=== PATIENT | female | born 1985 | race Caucasian/White ===

== ENCOUNTER 2021-04-12 17:34 | Observation (INO) | payer SELFPAY ==
--- NOTE | ~2021-04-12 | CT_ITS ---
EXAMINATION: CT abdomen pelvis wo con DATE: 04/12/2021 19:11 INDICATION: Epigastric and lower abdominal pain TECHNIQUE: Computed tomography (CT) of the abdomen and pelvis was performed without intravenous contr ast. The dose-length product was 344.97 mGy-cm. Automated exposure control and iterative reconstructi on technique were employed. COMPARISON: None. FINDINGS: Lung bases are unremarkable. No significant pleural or pericardial effusion. Heart size nor mal. No significant vascular abnormality. No significant lymphadenopathy. Status post cholecystectomy . The liver is hyperdense, suspicious for hemachromatosis. The pancreas, adrenal glands are unremarka ble. There is bilateral renal scarring. Nonobstructive bowel gas pattern. No abnormal pelvic masses o r fluid collections. Liver is enlarged. No lytic or blastic lesions. IMPRESSION: 1. Hepatomegaly with hyperdensity of the liver parenchyma, suspicious for hemachromatosis. Reviewed, dictated and finalized at location A. IMPRESSION: 1. Hepatomegaly with hyperdensity of the liver parenchyma, suspicious for hemac hromatosis.
[2021-04-12 17:39] VITALS: BP 158/115; PULSE 112; RESP 16; TEMP 37; O2SAT 99
--- NOTE | 2021-04-12 18:11 | ECG_ITS ---
Measurements Intervals [place] Rate: 96 P: 25 [place]: 143 QRS: 52 QRSD: 73 T: 48 QT: 356 QTc: 451 Interpretive Statements SINUS RHYTHM NORMAL ECG Electronically Signed On 04-13-2021 6:51:24 CDT by Josse Lind D.O.
[2021-04-12 18:28] LABS: Basophils Absolute Auto 0.04 K/mm3 (0.00-0.10); Basophils Percent Auto 0.5 % (0.0-1.0); Eosinophils Absolute Auto 0.15 K/mm3 (0.02-0.50); Eosinophils Percent Auto 1.9 % (1.0-6.0); Hematocrit 39.6 % (35.0-49.0); Immature Granulocyte Absolute 0.03 K/mm3 (0.00-0.00); Immature Granulocyte Percent A 0.4 % (0.0-0.0); Lymphocytes Absolute Auto 2.03 K/mm3 (1.10-4.50); Lymphocytes Percent Auto 25.7 % (18.0-42.0); Mean Corpuscular HGB Conc 32.8 g/dL (32.0-36.0); Mean Corpuscular Hemoglobin 28.1 pg (27.0-31.0); Mean Corpuscular Volume 85.7 fL (78.0-102.0); Mean Platelet Volume 9.6 fl (9.2-11.8); Monocytes Absolute Auto 0.44 K/mm3 (0.10-0.90); Monocytes Percent Auto 5.6 % (2.0-11.0); Neutrophils Absolute Auto 5.2 K/mm3 (1.7-7.2); Neutrophils Percent Auto 65.9 % (50.0-70.0); Platelet Count Result 396 K/mm3 (150-420); Red Blood Count 4.62 M/mm3 (4.20-5.40); Red Cell Distribution Width 15.2 % (11.6-14.4); White Blood Count 7.9 K/mm3 (4.8-10.8)
[2021-04-12 18:30] LABS: Appearance Urine Clear (Clear); Bilirubin Urine Negative (Negative); Color Urine Yellow (Yellow); Glucose Urine UA 3+ (Negative); Ketones Urine Negative (Negative); Leukocyte Esterase Ur Negative LEU/UL (Negative); Nitrate Urine Negative (Negative); Protein Urine 2+ (Negative); Specific Grav Ur >= 1.030 (1.010-1.020); Urobilinogen Urine 0.2 mg/dL (0.2-1.0); pH Urine 5.5 (5.0-8.0)
[2021-04-12 18:37] LABS: Add Urine Microscopic? YES; Amorphous Sediment Urine Few; Bacteria Urine 1+ /hpf; Blood Urine Trace (Negative); RBC Urine 0-2 /hpf (0-2); Squamous Epithelial Cell Urine Few /hpf (Few); WBC Urine 0-3 /hpf (0-3)
[2021-04-12 18:39] LABS: Pregnancy On Board Control Positive; Urine Pregnancy Test Negative
[2021-04-12] MEDS: SODIUM CHLORIDE 0.9% IV 1,000 ML 999 ML IV CONT (18:45)
[2021-04-12] MEDS: ONDANSETRON INJ 4 MG/2 ML VIAL IV PUSH (18:45)
[2021-04-12] MEDS: KETOROLAC 30 MG/ML VIAL (*BKC) IV PUSH (18:45)
[2021-04-12] MEDS: PANTOPRAZOLE SODIUM IV 40 MG VIAL IV PUSH (18:45)
[2021-04-12 18:46] LABS: Alanine Aminotransferase 32 U/L (14-59); Albumin Level 2.9 g/dL (3.4-5.0); Alkaline Phosphatase 163 U/L (46-116); Anion Gap 15 mmol/L (8-16); Aspartate Amino Transferase 23 U/L (15-37); Bilirubin,Total 0.2 mg/dL (0.00-1.00); Blood Urea Nitrogen 20 mg/dL (7-18); Calcium 8.9 mg/dL (8.5-10.1); Carbon Dioxide 25 mmol/L (21-32); Chloride 100 mmol/L (98-108); Estimated Glomerular Filt Rate 35; Glucose 166 mg/dL (70-99); Lactic Acid Reflex 6.3 mmol/L (0.4-2.0); Lipase 1145 U/L (73-393); Osmolality Calculated 296 mOsm/kg (285-295); Potassium 4.1 mmol/L (3.5-5.1); Sodium 140 mmol/L (136-145); Total Protein 6.9 g/dL (6.4-8.2)
--- NOTE | 2021-04-12 19:33 | ED.ABDPAIN ---
HPI - Abdominal Pain General Chief Complaint: Abdominal Pain Stated Complaint: abd pain Time Seen by Provider: 04/12/21 17:37 Source: patient Mode of arrival: ambulatory Limitations: no limitations History of Present Illness HPI narrative: this is a 36-year-old female with a history of type 1 diabetes currently on insulin presents with some abdominal pain periumbilical radiating to her right lower quadrant and having some epigastric diff some discomfort started 5 days ago and has persisted and today it had slightly worsened she has some nausea with few episodes of vomiting she denies any alcohol use, she has a history of cholecystectomy. Otherwise there is no fever or chills no flank pain no diarrhea or constipation no alcohol or drug abuse. MD elicited complaint: abdominal pain Pertinent past history: none Onset (ago): day(s) Pain Consistency: intermittent Location: diffuse and RLQ Severity: moderate Pain scale (0-10): 8 Quality: aching Radiation: RLQ Migration to: no migration Exacerbating factors: vomiting Relieving factors: nothing Associated symptoms: nausea and vomiting Related Data Home Medications Medication Instructions Recorded Confirmed insulin glargine [Lantus Solostar 28 unit SUBCUT HS 04/12/21 04/12/21 U-100 Insulin] insulin regular human 1 - 20 unit SUBCUT TID 04/12/21 04/12/21 Allergies Allergy/AdvReac Type Severity Reaction Status Date / Time iodine Allergy Unknown Verified 04/12/21 18:22 latex Allergy Unknown Verified 04/12/21 18:22 Penicillins Allergy Unknown Verified 04/12/21 18:22 Review of Systems Review of Systems: All systems reviewed & are unremarkable except as noted in HPI and below PMFSH Past Medical History Medical History Type 1 diabetes Exam Const: General: no acute distress Orientation/consciousness: patient oriented x3 HENMT: Head: normal to inspection Eyes: Conjunctivae: conjunctivae normal Pupils: Equal, round and reactive pupils present Neck: Neck: normal visual inspection, no lymphadenopathy and no meningeal signs Chest: Chest palpation & inspection: normal inspection of the chest Resp: Effort & Inspection: normal respiratory effort Auscultation: clear to auscultation bilaterally Cardio: Rate: regular rate Rhythm: regular rhythm GI: GI Palp: Yes Soft to palpation and Yes Tenderness to palpation present (GI) ( epigastric and right lower quadrant) : General: Yes no CVA tenderness Skin: General skin exam: normal color Rashes: no rashes Neuro: General: patient oriented x3 and moves all extremities Extrem: General: normal to inspection and no pedal edema Psych: Appearance: grossly normal Mental Status: mental status grossly normal Affect: normal affect Attitude: cooperative Course Course Emergency Course: reassessment of patient's abdominal pain has improved with some IV Toradol and IV fluids labs were reviewed with patient and CT scan, does some show that her labs have are increased lipase greater than a 1000 and will admit the patient for observation. Vital Signs Vital signs: Vital Signs Temperature 37.0 C 04/12/21 17:39 Pulse Rate 112 H 04/12/21 17:39 Respiratory Rate 16 04/12/21 17:39 Blood Pressure 158/115 H 04/12/21 17:39 Pulse Oximetry 99 04/12/21 17:39 Temperature 37.0 C 04/12/21 17:39 Pulse Rate 112 H 04/12/21 17:39 Respiratory Rate 16 04/12/21 17:39 Blood Pressure 158/115 H 04/12/21 17:39 Pulse Oximetry 99 04/12/21 17:39 MDM - Abdominal Pain Lab Data Result diagrams: 04/12/21 18:23 04/12/21 18:23 Labs: Lab Results 04/12/21 04/12/21 04/12/21 Range/Units 18:23 18:23 18:23 WBC 7.9 (4.8-10.8) K/mm3 RBC 4.62 (4.20-5.40) M/mm3 Hgb 13.0 (12.0-15.0) g/dL Hct 39.6 (35.0-49.0) % MCV 85.7 (78.0-102.0) fL MCH 28.1 (27.0-31.0) pg MCHC 32.8 (32.0-36.0) g/dL RDW 15.2 H (
[2021-04-12 19:39] VITALS: PULSE 111; RESP 20; O2SAT 97
--- NOTE | 2021-04-12 19:44 | PC.NURSE ---
1924 obs room requested. room 202 provided. registration notified. 1942 attempted to call report. accepting nurse unavailable. awaiting call back
[2021-04-12 20:00] VITALS: BP 143/94; BP 145/106; PULSE 111; PULSE 112; RESP 20; TEMP 36.2; O2SAT 95; O2SAT 97
--- NOTE | 2021-04-12 20:00 | ADMGEN ---
This patient, Khloe Crump, was admitted to 2nd Floor Room 202-1 via wheelchair. Patient oriented to hospital policies and general routines including ID bracelet, bed and alarms, visiting hours, pain management, procedures, bathroom and other care routines, personal items, smoking policy, room service/diet, and visiting hours. Information on how to activate the Rapid Response Team has been discussed. Patient is encouraged to report perceived risks to care and to ask questions if they do not understand what they are told or what they should do.
[2021-04-12 20:03] VITALS: BMI 24.5
[2021-04-12 21:26] LABS: Reflex Lactic Acid Yes or No Add Lactic
[2021-04-12] MEDS: INSULIN GLARGINE (*BKC) 100 UNITS/ML 28 UNITS SUB-Q (22:19)
[2021-04-12] MEDS: SODIUM CHLORIDE 0.9% IV 1,000 ML 100 ML IV CONT (22:20)
[2021-04-12] MEDS: MORPHINE SULFATE (*CRX) 2 MG/ML INJ IV PUSH (22:20)
--- NOTE | 2021-04-12 22:20 | PC.NURSE ---
YAZMIN Mendez at bedside to administer IV push Morphine.
[2021-04-12 22:59] LABS: Glucose Point of Care 148 mg/dl (65-105)
[2021-04-13] VITALS: BP 143/94; PULSE 111; RESP 20; TEMP 36.2; O2SAT 97
[2021-04-13 04:00] VITALS: BP 132/98; PULSE 76; RESP 18; TEMP 36.3; O2SAT 98
[2021-04-13 06:49] LABS: Basophils Absolute Auto 0.03 K/mm3 (0.00-0.10); Basophils Percent Auto 0.6 % (0.0-1.0); Eosinophils Absolute Auto 0.16 K/mm3 (0.02-0.50); Eosinophils Percent Auto 3.1 % (1.0-6.0); Hematocrit 33.5 % (35.0-49.0); Hemoglobin 10.9 g/dL (12.0-15.0); Immature Granulocyte Absolute 0.02 K/mm3 (0.00-0.00); Immature Granulocyte Percent A 0.4 % (0.0-0.0); Lymphocytes Absolute Auto 2.04 K/mm3 (1.10-4.50); Lymphocytes Percent Auto 39.4 % (18.0-42.0); Mean Corpuscular HGB Conc 32.5 g/dL (32.0-36.0); Mean Corpuscular Hemoglobin 28.6 pg (27.0-31.0); Mean Corpuscular Volume 87.9 fL (78.0-102.0); Monocytes Percent Auto 5.8 % (2.0-11.0); Neutrophils Absolute Auto 2.6 K/mm3 (1.7-7.2); Neutrophils Percent Auto 50.7 % (50.0-70.0); Platelet Count Result 269 K/mm3 (150-420); Red Blood Count 3.81 M/mm3 (4.20-5.40); Red Cell Distribution Width 15.8 % (11.6-14.4); White Blood Count 5.2 K/mm3 (4.8-10.8)
[2021-04-13 07:01] LABS: Alanine Aminotransferase 33 U/L (14-59); Albumin Level 2.1 g/dL (3.4-5.0); Alkaline Phosphatase 113 U/L (46-116); Anion Gap 10 mmol/L (8-16); Aspartate Amino Transferase 56 U/L (15-37); Bilirubin,Total 0.2 mg/dL (0.00-1.00); Blood Urea Nitrogen 19 mg/dL (7-18); Calcium 7.3 mg/dL (8.5-10.1); Carbon Dioxide 23 mmol/L (21-32); Chloride 107 mmol/L (98-108); Estimated CRCL calculation 54 ml/min; Estimated Glomerular Filt Rate 56; Glucose 232 mg/dL (70-99); Osmolality Calculated 299 mOsm/kg (285-295); Potassium 4.6 mmol/L (3.5-5.1); Sodium 140 mmol/L (136-145); Total Protein 5.2 g/dL (6.4-8.2)
[2021-04-13 07:04] LABS: Lipase 170 U/L (73-393)
[2021-04-13 07:57] LABS: Glucose Point of Care 237 mg/dl (65-105)
[2021-04-13 08:00] VITALS: BP 136/103; PULSE 82; RESP 18; TEMP 36.4; O2SAT 100
[2021-04-13 08:57] LABS: Reflex Lactic Acid Yes or No No Lactic Reflex
[2021-04-13] MEDS: PANTOPRAZOLE SODIUM IV 40 MG VIAL IV PUSH (09:01)
[2021-04-13] MEDS: SODIUM CHLORIDE 0.9% IV 1,000 ML 100 ML IV CONT (09:01)
[2021-04-13] MEDS: ONDANSETRON INJ 4 MG/2 ML VIAL IV PUSH (09:50)
[2021-04-13] MEDS: MORPHINE SULFATE (*CRX) 2 MG/ML INJ IV PUSH (09:50)
[2021-04-13 11:43] LABS: Glucose Point of Care 86 mg/dl (65-105)
[2021-04-13 12:14] LABS: Lactic Acid Reflex 2.6 mmol/L (0.4-2.0)
--- NOTE | 2021-04-13 13:12 | PM.SD2 ---
Same Day Admit/Disch: HPI History of Present Illness Chief complaint: abd pain <DOLORES Henriquez - Last Filed: 04/13/21 13:27> Narrative: Khloe Crump is a 36 year old female that presented to ED with abdominal pain. Patient has a past medical history of type 1 diabetes mellitus. According to patient at approximately 04/07/2021 she started experiencing abdominal pain to her right lower quadrant that was not relieved with the use of Tylenol but worsened when she ate. According to patient she has had these same abdominal pains in the past that did not last for long. What prompted her to proceed to our ED is that the pain would not resolve. Patient notes that she did have some nausea with a few episodes of vomiting. Imaging indicated a hepatomegaly patient lipase was 1145 lactic acid 6.3, WBCs 5.2, hemoglobin 10.9, hematocrit 33.5, platelets 269, sodium 140, potassium 4.6, chloride 107, BUN 19, creatinine 1.11, glucose 232, AST 56, ALT 33 EKG sinus rhythm. Patient was admitted for pancreatitis. This day of discharge patient abdominal pain has subsided and she was able to tolerate all her meals. Patient agrees she is ready for discharge. The patient denies SOB, CP, palpitation, extremity numbness, lightheadedness, dizziness, constipation, diarrhea, chills, or fever. Observation 60 minutes time spent With discharge home with self-care <DOLORES Henriquez - Last Filed: 04/13/21 13:27> [facility] Past Medical History Medical History: Medical History Type 1 diabetes <DOLORES Henriquez - Last Filed: 04/13/21 13:27> Social History Social History: Social History Smoking status: Former smoker Tobacco type: cigarettes Second hand tobacco smoke exposure: Yes Smoking end date: 03/22/20 Alcohol intake: former Drinks per week: 0 Substance use: never Substance use type: does not use Gender identity (if verbalized by the patient): Female Sexual Orientation (if Verbalized by the Patient): Straight or Heterosexual Spiritual care concerns: No <DOLORES Henriquez - Last Filed: 04/13/21 13:27> Same Day Admit/Disch: Med Pre-admit Medications Home Medications: Home Medications Medication Instructions Recorded Confirmed Type Lantus Solostar U-100 Insulin 28 unit SUBCUT HS 04/12/21 04/12/21 History insulin regular human 1 - 20 unit SUBCUT TID 04/12/21 04/12/21 History ondansetron HCl [Zofran] 4 mg PO Q8H PRN #30 tablet 04/13/21 Rx tramadol 100 mg PO Q4H PRN #20 tablet 04/13/21 Rx <Staci [id number]-C - Last Filed: 04/13/21 13:27> Exam Narrative: Exam Narrative: GENERAL: This is a well-nourished, well-developed patient, in no apparent distress. HEAD: normocephalic, atraumatic. EYES: PERRL. Sclera clear/white. Vision is grossly intact. EARS: External ears normal, auditory canals clear and without drainage, TMs normal without perforation. Hearing grossly intact. NOSE: External nose normal with no obvious nasal discharge, nares without redness, no rhinorrhea. THROAT: Mucous membranes moist, posterior pharynx clear. NECK: Neck supple, non-tender without lymphadenopathy, masses or thyromegaly. CARDIOVASCULAR: Regular rate and rhythm without murmurs, gallops, or rubs. RESPIRATORY: Clear to auscultation. Breath sounds equal bilaterally. No wheezes, rales, or rhonchi. GASTROINTESTINAL: Abdomen soft, right lower quadrant tenderness with palpation, nondistended. Bowel sounds are active. No hepato-splenomegaly, or palpable masses. No guarding. SKIN: warm, intact with no suspicious lesions or rash, good texture and turgor. NEURO: awake, alert, and oriented to person, place and time. There were no obvious focal neurologic abnormalities. Steady gait EXTREMITIES: Normal range of motion. No edema. No calf tenderness. Negative Homans sign bilaterally. BACK: Nontender without def
--- NOTE | 2021-04-13 14:00 | PC.NURSE ---
Patient discharged to home. Ambulated off of floor, gait steady. Patient verbalized understanding of discharge orders
--- NOTE | 2021-04-14 12:58 | PC.NURSE ---
Follow up call attempted, no answer.
--- NOTE | 2021-04-15 12:34 | PC.NURSE ---
Discharge call back attempted, no answer.
== END 2021-04-13 14:00 | disposition home or self-care (01) ==
LOC: CHSED 19:38 → CHS2ND 19:46
PROVIDERS: Nurse Practitioner; Admitting Provider Emergency Medicine; Emergency Provider Emergency Medicine; Visit Provider Emergency Medicine
DX: K85.90 Acute pancreatitis without necrosis or infection, unspecified (principal); E10.9 Type 1 diabetes mellitus without complications; R16.0 Hepatomegaly, not elsewhere classified; Z90.49 Acquired absence of other specified parts of digestive tract; Z87.891 Personal history of nicotine dependence; Z79.4 Long term (current) use of insulin
CPT/HCPCS: 36415; 74176; 80053; 81001; 81025; 82948; 83605; 83690; 84484; 85025; 93005; 96361; 96374; 96375; 96376; 99285; C9113; G0378; G0379; J1815; J1885; J2270; J2405; J7030

== ENCOUNTER 2021-05-25 20:19 | Inpatient (IN) | payer MEDICARE, SELFPAY ==
--- NOTE | ~2021-05-25 | CT_ITS ---
EXAMINATION: CT abdomen pelvis wo con EXAM DATE: 05/25/2021 21:39 INDICATION: RUQ Pian, Hx/o pancreatitis allergy to Iodine RUQ pain x2 days w/nausea/diarrhea. hx panc reatitis . TECHNIQUE: Spiral CT of the abdomen and pelvis was performed following intravenous injection of 100 m L Omnipaque 350. Axial, coronal and sagittal images of the abdomen and pelvis were reviewed. The do se-length product (DLP) for this examination was 308.25 mGy-cm. The exposure was tailored according to patient size (auto mA exposure control), and iterative reconstruction (ASIR) was used as additiona l dose reduction technique. Comparison is made to prior examination from 04/12/2021. FINDINGS: Again there is hepatomegaly and diffusely hyperdense liver parenchyma, could be hemosideros is or hemachromatosis. Adrenal glands, pancreas, spleen are unremarkable. There are cholecystectomy clips. Lobular mild to moderately atrophic right kidney with small nephrolithiasis. No hydronephrosi s. The uterus is unremarkable. The bladder is unremarkable. There is no retroperitoneal or pelvic lymphadenopathy. The appendix is normal. The stomach and small bowel are unremarkable. There is expected amount of c olonic stool. No free intraperitoneal gas. The heart is normal in size. There are no pericardial or pleural effusions. The lung bases are unremarkable. There are no osteoblastic or osteolytic les ions identified. IMPRESSION: 1. No acute intra-abdominal findings. 2. Hepatomegaly, hyperdense liver could be hemosiderosis or hemachromatosis, unchanged. 3. Mild to moderate right renal atrophy. Small right nephrolithiasis. Reviewed, dictated and finalized at location A. IMPRESSION: 1. No acute intra-abdominal findings. 2. Hepatomegaly, hyperdense liver could be hemosiderosis or hemachromatosis, u nchanged. 3. Mild to moderate right renal atrophy. Small right nephrolithiasis.
[2021-05-25 20:25] VITALS: BP 196/111; PULSE 114; RESP 18; TEMP 36.4; O2SAT 99
--- NOTE | 2021-05-25 20:36 | ED.ABDPAIN ---
HPI - Abdominal Pain General Chief Complaint: Abdominal Pain Stated Complaint: upper stomach pain History of Present Illness HPI narrative: patient has a history of previous pancreatitis idiopathic. Began having abdominal pain right upper quadrant similar to previous symptoms 2 days ago. She said the last time she waited 5 days and it was unbearable. She did not want to wait that long this time. She denies any alcohol use. MD elicited complaint: abdominal pain Onset (ago): day(s) (2) Pain Consistency: intermittent Location: RUQ Severity: mild Pain scale (0-10): 3 Quality: aching, fullness and dull Radiation: none Migration to: no migration Exacerbating factors: eating Relieving factors: nothing Context: confirms history of similar episodes Associated symptoms: nausea and diarrhea Related Data Patient : No Home Medications Medication Instructions Recorded Confirmed Lantus Solostar U-100 Insulin 28 unit SUBCUT HS 04/12/21 05/25/21 insulin regular human 1 - 20 unit SUBCUT TID 04/12/21 05/25/21 Allergies Allergy/AdvReac Type Severity Reaction Status Date / Time iodine Allergy Unknown Verified 04/12/21 18:22 latex Allergy Unknown Verified 04/12/21 18:22 Penicillins Allergy Unknown Verified 04/12/21 18:22 Review of Systems Review of Systems: All systems reviewed & are unremarkable except as noted in HPI and below Constitutional: Constitutional: Denies chills and Denies fever(s) Cardiovascular: Cardiovascular: Denies chest pain Respiratory: Respiratory: Denies dyspnea Gastrointestinal: Gastrointestinal: Reports diarrhea, Reports nausea and Denies vomiting Genitourinary: Genitourinary: Denies nocturia and Denies dysuria [facility] Past Medical History Medical History (Updated 05/25/21 @ 22:04 by Jonathan Connors MD) Pancreatitis Type 1 diabetes Surgical History Surgical History (Updated 05/25/21 @ 20:38 by Jonathan Connors MD) Hx of cholecystectomy Social History Social History Smoking status: Former smoker Tobacco type: cigarettes Second hand tobacco smoke exposure: Yes Smoking end date: 03/22/20 Alcohol intake: former Drinks per week: 0 Substance use: never Substance use type: does not use Gender identity (if verbalized by the patient): Female Spiritual care concerns: No Exam Const: General: healthy appearing and no acute distress Nutritional Appearance: well nourished Orientation/consciousness: patient oriented x3 Other: female nurse in room during examination. HENMT: Head: normal to inspection Ears: external ears normal Eyes: Conjunctivae: conjunctivae normal Pupils: Equal, round and reactive pupils present EOM: EOMs intact bilaterally Neck: Neck: normal visual inspection Resp: Effort & Inspection: normal respiratory effort Auscultation: clear to auscultation bilaterally Cardio: Rate: tachycardic Rhythm: regular rhythm GI: Inspection: distended GI Palp: Yes Soft to palpation, Yes Tenderness to palpation present (GI) (Mild RUQ), Yes Guarding due to palpation present (GI) (Mild), No Rigid due to palpation and No Rebound tenderness present Percussion: Yes normal to percussion and No Fluid wave present Back/Spine/Pelvis: Cervical Spine: cervical ROM normal Thoracic/Lumbar Spine: thoraco-lumbar ROM normal Skin: General skin exam: normal color Rashes: no rashes Neuro: General: patient oriented x3, moves all extremities, no meningeal signs and no focal motor deficits Speech: normal speech Gait exam (Neuro): Normal gait present Extrem: General: normal to inspection and no clubbing, cyanosis or edema Psych: Appearance: grossly normal and well kempt Mental Status: mental status grossly normal Affect: normal affect Attitude: cooperative Thought content: Yes Normal thought content present Discharge Plan Discharge Clinical Impression: Pancreatitis Qualifiers: Chronicity: acute Pancreatitis typ
[2021-05-25 21:00] LABS: Basophils Absolute Auto 0.04 K/mm3 (0.00-0.10); Basophils Percent Auto 0.6 % (0.0-1.0); Eosinophils Percent Auto 3.1 % (1.0-6.0); Hematocrit 39.4 % (35.0-49.0); Hemoglobin 13.1 g/dL (12.0-15.0); Immature Granulocyte Absolute 0.02 K/mm3 (0.00-0.00); Immature Granulocyte Percent A 0.3 % (0.0-0.0); Lymphocytes Absolute Auto 1.67 K/mm3 (1.10-4.50); Lymphocytes Percent Auto 25.9 % (18.0-42.0); Mean Corpuscular HGB Conc 33.2 g/dL (32.0-36.0); Mean Corpuscular Hemoglobin 29.3 pg (27.0-31.0); Mean Corpuscular Volume 88.1 fL (78.0-102.0); Mean Platelet Volume 9.2 fl (9.2-11.8); Monocytes Percent Auto 6.2 % (2.0-11.0); Neutrophils Absolute Auto 4.1 K/mm3 (1.7-7.2); Neutrophils Percent Auto 63.9 % (50.0-70.0); Platelet Count Result 400 K/mm3 (150-420); Red Blood Count 4.47 M/mm3 (4.20-5.40); Red Cell Distribution Width 13.9 % (11.6-14.4); White Blood Count 6.5 K/mm3 (4.8-10.8)
[2021-05-25 21:05] LABS: Add Urine Microscopic? YES; Appearance Urine Clear (Clear); Bilirubin Urine Negative (Negative); Blood Urine 1+ (Negative); Color Urine Light Yellow (Yellow); Glucose Urine UA 3+ (Negative); Ketones Urine Trace (Negative); Leukocyte Esterase Ur Negative LEU/UL (Negative); Nitrate Urine Negative (Negative); Protein Urine 2+ (Negative); Urobilinogen Urine 0.2 mg/dL (0.2-1.0); pH Urine 5.5 (5.0-8.0)
[2021-05-25 21:10] LABS: Squamous Epithelial Cell Urine Rare /hpf (Few)
[2021-05-25 21:11] LABS: Alanine Aminotransferase 56 U/L (14-59); Albumin Level 2.9 g/dL (3.4-5.0); Alkaline Phosphatase 182 U/L (46-116); Amylase 85 U/L (25-115); Anion Gap 18 mmol/L (8-16); Aspartate Amino Transferase 44 U/L (15-37); Bacteria Urine Trace /hpf; Bilirubin,Total 0.2 mg/dL (0.00-1.00); Blood Urea Nitrogen 17 mg/dL (7-18); Calcium 8.9 mg/dL (8.5-10.1); Carbon Dioxide 23 mmol/L (21-32); Chloride 96 mmol/L (98-108); Estimated CRCL calculation 54 ml/min; Estimated Glomerular Filt Rate 53; Glucose 321 mg/dL (70-99); Lipase 774 U/L (73-393); Osmolality Calculated 297 mOsm/kg (285-295); Potassium 4.3 mmol/L (3.5-5.1); Sodium 137 mmol/L (136-145); Total Protein 6.7 g/dL (6.4-8.2)
[2021-05-25 21:16] LABS: SPREG INTERNAL CONTROL Positive; Serum Qual hCG NEG
[2021-05-25 21:21] LABS: Amphetamine Screen Urine Negative (Negative); Barbiturate Screen Urine Negative (Negative); Benzodiazepines Screen Urine Negative (Negative); Cannabinoid Screen Urine Negative (Negative); Cocaine Screen Urine Negative (Negative); Methadone Screen Urine Negative (Negative); Opiate Screen Urine Negative (Negative); Phencyclidine Screen Urine Negative (Negative)
[2021-05-25 21:24] LABS: CRP < 0.2 mg/dL (0.0-0.9)
[2021-05-25 21:27] LABS: Lactic Acid Reflex 8.5 mmol/L (0.4-2.0)
[2021-05-25 21:58] VITALS: BP 167/111; PULSE 104; RESP 18; O2SAT 99
[2021-05-25] MEDS: LACTATED RINGERS 1,000 ML 999 ML IV CONT (22:06)
[2021-05-25] MEDS: hydrALAZINE HCL 20 MG/ML VIAL IV PUSH (22:07)
[2021-05-25 22:09] VITALS: BP 150/100; PULSE 102; RESP 18; TEMP 36.2; O2SAT 99
[2021-05-25] MEDS: MORPHINE SULFATE (*CRX) 2 MG/ML INJ (22:10)
[2021-05-25 22:37] VITALS: PULSE 125; RESP 20; TEMP 36.4; O2SAT 98; BMI 22.5
--- NOTE | 2021-05-25 23:01 | ADMGEN ---
This patient, Khloe Crump, was admitted to 2nd Floor Room 208-2. Patient oriented to hospital policies and general routines including ID bracelet, bed and alarms, visiting hours, pain management, procedures, bathroom and other care routines, personal items, smoking policy, room service/diet, and visiting hours. Information on how to activate the Rapid Response Team has been discussed. Patient are encouraged to report perceived risks to care and to ask questions if they do not understand what they are told or what they should do.
[2021-05-25 23:52] LABS: Reflex Lactic Acid Yes or No Add Lactic
[2021-05-26] MEDS: LACTATED RINGERS 1,000 ML 200 ML IV CONT ×2 (00:45→06:36)
[2021-05-26] MEDS: INSULIN GLARGINE (*BKC) 100 UNITS/ML 28 UNITS SUB-Q ×2 (00:46→21:04)
--- NOTE | 2021-05-26 00:52 | PC.NURSE ---
Patient blood glucose 420 Doctor notified and order received for 1 time dose of 10 units of Humalog
[2021-05-26 00:56] VITALS: BP 118/72; PULSE 112; RESP 18; TEMP 36.3; O2SAT 98
[2021-05-26 01:01] LABS: Glucose Point of Care 420 mg/dl (65-105)
[2021-05-26 01:35] LABS: Lactic Acid Reflex 1.8 mmol/L (0.4-2.0)
[2021-05-26 05:18] LABS: Basophils Absolute Auto 0.04 K/mm3 (0.00-0.10); Basophils Percent Auto 0.6 % (0.0-1.0); Eosinophils Absolute Auto 0.21 K/mm3 (0.02-0.50); Eosinophils Percent Auto 3.2 % (1.0-6.0); Hematocrit 33.2 % (35.0-49.0); Hemoglobin 11.2 g/dL (12.0-15.0); Immature Granulocyte Absolute 0.02 K/mm3 (0.00-0.00); Immature Granulocyte Percent A 0.3 % (0.0-0.0); Lymphocytes Absolute Auto 2.28 K/mm3 (1.10-4.50); Lymphocytes Percent Auto 34.9 % (18.0-42.0); Mean Corpuscular HGB Conc 33.7 g/dL (32.0-36.0); Mean Corpuscular Hemoglobin 29.9 pg (27.0-31.0); Mean Corpuscular Volume 88.5 fL (78.0-102.0); Mean Platelet Volume 9.3 fl (9.2-11.8); Monocytes Percent Auto 7.6 % (2.0-11.0); Neutrophils Absolute Auto 3.5 K/mm3 (1.7-7.2); Neutrophils Percent Auto 53.4 % (50.0-70.0); Platelet Count Result 288 K/mm3 (150-420); Red Blood Count 3.75 M/mm3 (4.20-5.40); White Blood Count 6.5 K/mm3 (4.8-10.8)
[2021-05-26 05:34] LABS: Alanine Aminotransferase 39 U/L (14-59); Albumin Level 2.1 g/dL (3.4-5.0); Alkaline Phosphatase 126 U/L (46-116); Anion Gap 12 mmol/L (8-16); Aspartate Amino Transferase 38 U/L (15-37); Bilirubin,Total 0.3 mg/dL (0.00-1.00); Blood Urea Nitrogen 16 mg/dL (7-18); Carbon Dioxide 23 mmol/L (21-32); Chloride 103 mmol/L (98-108); Estimated CRCL calculation 72 ml/min; Estimated Glomerular Filt Rate > 60; Glucose 72 mg/dL (70-99); Lipase 212 U/L (73-393); Osmolality Calculated 286 mOsm/kg (285-295); Potassium 3.8 mmol/L (3.5-5.1); Sodium 138 mmol/L (136-145); Total Protein 5.1 g/dL (6.4-8.2)
[2021-05-26 05:39] LABS: Lactic Acid Reflex 3.7 mmol/L (0.4-2.0)
--- NOTE | 2021-05-26 05:42 | PC.NURSE ---
Patient glucose 72. Doctor aware of change. will recheck on 1 hour
[2021-05-26 06:40] LABS: Glucose Point of Care 83 mg/dl (65-105)
--- NOTE | 2021-05-26 07:48 | PC.NURSE ---
pt resting in bed, vital signs obtained, no complaints of pain N/V at this time, iv fluids running per order
[2021-05-26 08:00] VITALS: BP 133/96; PULSE 89; RESP 16; TEMP 36.7; O2SAT 98
--- NOTE | 2021-05-26 09:10 | PC.NURSE ---
pt resting in bed, denies any pain or needs at this time.
--- NOTE | 2021-05-26 09:12 | PM.IMHP ---
H&P: HPI History of Present Illness Date/Time: 05/26/21 09:12 this is a 36-year-old female who presented to our emergency department with abdominal pain nausea vomiting and diarrhea. Patient has a past medical history of pancreatitis and type 1 diabetes. Patient notes that within the last 6 months she has been admitted here for pancreatitis she does not have a history of alcohol abuse. She noted that for the last 2 days she has been having right upper quadrant pain with nausea vomiting and diarrhea. Currently she is not experiencing that she still continues to have right upper quadrant tenderness. WBC 6.5 hemoglobin 13.1 hematocrit 39.4, platelets 400, sodium 137, potassium 4.3, BUN 17, creatinine 1.17 lactic acid 8.5 AST 44, ALT 56, alkaline phosphatase 182, lipase 774, amylase 85 UA positive for protein glucose ketones blood trace of bacteria toxicology negative CT of the abdomen unchanged. Patient is being admitted for pancreatitis. The patient denies SOB, CP, palpitation, extremity numbness, lightheadedness, dizziness, constipation, diarrhea, chills, or fever. Patient notes that her situation has improved she does continue to have tenderness to her right upper quadrant but her pain is controlled. Chief Complaint: Abdominal pain nausea vomiting diarrhea Review of Systems Review of Systems: Narrative: A 14 organ system Review of Systems was performed and pertinent positives included in the HPI, otherwise remaining ROS is negative. All systems reviewed & are unremarkable except as noted in HPI and below PMFSH Past Medical History Medical History (Updated 05/26/21 @ 09:23 by DOLORES Henriquez) Pancreatitis Type 1 diabetes Surgical History Surgical History Hx of cholecystectomy Family History Family History (Updated 05/26/21 @ 09:20 by DOLORES Henriquez) Other Family history non-contributory Social History Social History Smoking packs per day: 0 Smoking cigarettes per day: 0.0 Smoking status: Light tobacco smoker Tobacco type: cigarettes Second hand tobacco smoke exposure: Yes Smoking end date: 03/22/20 Additional smoking assessment comments: pt stated smoked maybe 1 ciggeratte this past month Alcohol intake: former Drinks per week: 0 Substance use: never Substance use type: does not use Gender identity (if verbalized by the patient): Female Sexual Orientation (if Verbalized by the Patient): Straight or Heterosexual Spiritual care concerns: No Meds Home Medications and Allergies Home Medications Medication Instructions Recorded Confirmed Type Lantus Solostar U-100 Insulin 28 unit SUBCUT HS 04/12/21 05/25/21 History insulin regular human 1 - 20 unit SUBCUT TID 04/12/21 05/25/21 History Allergies Allergy/AdvReac Type Severity Reaction Status Date / Time iodine Allergy Unknown Verified 04/12/21 18:22 latex Allergy Unknown Verified 04/12/21 18:22 Penicillins Allergy Unknown Verified 04/12/21 18:22 Vital Signs Vital Signs - 24 hr 05/25/21 20:25 05/25/21 21:58 05/25/21 22:09 Temperature 97.6 F 97.2 F L Pulse Rate 114 H 104 H 102 H Respiratory Rate 18 18 18 Blood Pressure 196/111 H 167/111 H 150/100 H Pulse Oximetry 99 99 99 05/25/21 22:37 05/26/21 00:56 05/26/21 08:00 Temperature 97.6 F 97.4 F L 98.0 F Pulse Rate 125 H 112 H 89 Respiratory Rate 20 18 16 Blood Pressure 118/72 133/96 H Pulse Oximetry 98 98 98 Exam Narrative: Exam Narrative: GENERAL: This is a well-nourished, well-developed patient, in no apparent distress. HEAD: normocephalic, atraumatic. EYES: PERRL. Sclera clear/white. Vision is grossly intact. EARS: External ears normal, auditory canals clear and without drainage, TMs normal without perforation. Hearing grossly intact. NOSE: External nose normal with no obvious nasal discharge, nares without redness, no rhinorrhea. THRO
[2021-05-26] MEDS: MORPHINE SULFATE (*CRX) 2 MG/ML INJ IV PUSH (10:40)
[2021-05-26 10:44] LABS: Hemoglobin A1C 10.9 % (<5.7)
--- NOTE | 2021-05-26 10:45 | PC.NURSE ---
pt resting in bed, c/o pain rating 4, no N/V/D at this time, iv fluids running per order, pt willing to try advancing diet
[2021-05-26] MEDS: DEXTROSE 5%/LACTATED RINGERS 1,000 ML 200 ML IV CONT ×3 (11:03→22:28)
[2021-05-26 11:59] LABS: Glucose Point of Care 170 mg/dl (65-105)
[2021-05-26 12:02] LABS: Lactic Acid Reflex 2.5 mmol/L (0.4-2.0)
--- NOTE | 2021-05-26 12:32 | PC.NURSE ---
pt tolerated clear liquid diet, denies any N/V at this time, iv fluids running per order, belongings within reach
[2021-05-26] MEDS: ONDANSETRON INJ 4 MG/2 ML VIAL IV PUSH ×2 (12:58→18:09)
--- NOTE | 2021-05-26 13:04 | PC.NURSE ---
1258 C/O nausea with some burning after Clear diet. No dry heaves or emesis. Request nausea med. Zofran 4 mg IVP given.
--- NOTE | 2021-05-26 13:47 | PC.NURSE ---
pt changed to inpatient status at 1333 today
[2021-05-26 14:26] LABS: Reflex Lactic Acid Yes or No Add Lactic
--- NOTE | 2021-05-26 15:05 | PC.NURSE ---
Bedside report completed. Patient was sleeping comfortably.
[2021-05-26 16:00] VITALS: BP 140/98; PULSE 92; RESP 16; TEMP 36.6; O2SAT 98
[2021-05-26 16:47] LABS: Glucose Point of Care 162 mg/dl (65-105)
[2021-05-26] MEDS: ENOXAPARIN 40 MG/0.4 ML SYRINGE SUB-Q (17:13)
--- NOTE | 2021-05-26 19:42 | PC.NURSE ---
Patient sleeping comfortably.
[2021-05-26 21:10] LABS: Glucose Point of Care 183 mg/dl (65-105)
--- NOTE | 2021-05-26 22:42 | PC.NURSE ---
Patient had previously removed the hat from the toilet, so unable to measure continent voids. Replaced the hat, and asked her to please leave it there so would know how much she voided. She stated she had voided 4 times since 1899. That was charted.
[2021-05-26 23:34] VITALS: BP 158/100; PULSE 85; RESP 18; TEMP 36.5; O2SAT 100
[2021-05-27] MEDS: DEXTROSE 5%/LACTATED RINGERS 1,000 ML 200 ML IV CONT (04:08)
[2021-05-27 05:10] LABS: Hematocrit 35.3 % (35.0-49.0); Hemoglobin 11.4 g/dL (12.0-15.0); Mean Corpuscular HGB Conc 32.3 g/dL (32.0-36.0); Mean Corpuscular Hemoglobin 29.2 pg (27.0-31.0); Mean Corpuscular Volume 90.5 fL (78.0-102.0); Mean Platelet Volume 9.2 fl (9.2-11.8); Platelet Count Result 280 K/mm3 (150-420); Red Cell Distribution Width 14.2 % (11.6-14.4); White Blood Count 4.1 K/mm3 (4.8-10.8)
[2021-05-27 05:26] LABS: Alanine Aminotransferase 41 U/L (14-59); Albumin Level 2.1 g/dL (3.4-5.0); Alkaline Phosphatase 116 U/L (46-116); Anion Gap 9 mmol/L (8-16); Aspartate Amino Transferase 44 U/L (15-37); Bilirubin,Total 0.2 mg/dL (0.00-1.00); Blood Urea Nitrogen 6 mg/dL (7-18); Carbon Dioxide 27 mmol/L (21-32); Chloride 106 mmol/L (98-108); Estimated CRCL calculation 79 ml/min; Estimated Glomerular Filt Rate > 60; Glucose 89 mg/dL (70-99); Osmolality Calculated 290 mOsm/kg (285-295); Potassium 3.8 mmol/L (3.5-5.1); Sodium 142 mmol/L (136-145)
--- NOTE | 2021-05-27 07:37 | P.DS_ITS ---
DS: Admitting Diagnosis Admitting Diagnosis Admitting Diagnosis: Pancreatitis <Staci Tirado FINANCIAL SYSTEMS MANAGER-C - Last Filed: 05/27/21 10:56> DS: Discharge Diagnosis Discharge Diagnosis (1) Pancreatitis: Qualifiers: Acute pancreatitis complication: no infection or necrosis Chronicity: acute Pancreatitis type: idiopathic Qualified Code(s): K85.00 - Idiopathic acute pancreatitis without necrosis or infection <Staci Tirado FINANCIAL SYSTEMS MANAGER-C - Last Filed: 05/27/21 10:56> Code(s): K85.90 - Acute pancreatitis without necrosis or infection, unspecified <Staci Tirado FINANCIAL SYSTEMS MANAGER-C - Last Filed: 05/27/21 10:56> Status: Acute <Staci Tirado FINANCIAL SYSTEMS MANAGERMigueEne - Last Filed: 05/27/21 10:56> Assessment and Plan: * Reoccurring, etiology unknown, no history of alcohol abuse or use * Lipase 774>212 * Patient will need to follow-up with the GI doctor * Able to tolerate meals <Staci TiradoDOLORES - Last Filed: 05/27/21 10:56> (2) Hypertension: Qualifiers: Hypertension type: unspecified secondary hypertension Qualified Code(s): I15.9 - Secondary hypertension, unspecified <Staci Tirado FINANCIAL SYSTEMS MANAGER-C - Last Filed: 05/27/21 10:56> Code(s): I10 - Essential (primary) hypertension <Staci Tirado FINANCIAL SYSTEMS MANAGER-C - Last Filed: 05/27/21 10:56> Status: Acute <Staci TiradoDOLORES - Last Filed: 05/27/21 10:56> Assessment and Plan: * On admission patient blood pressure 158/100 * Continue home meds <Staci TiradoDOLORES - Last Filed: 05/27/21 10:56> (3) Type 1 diabetes: Code(s): E10.9 - Type 1 diabetes mellitus without complications <Staci TiradoDOLORES - Last Filed: 05/27/21 10:56> Status: Acute <Staci Tirado FINANCIAL SYSTEMS MANAGER-C - Last Filed: 05/27/21 10:56> Assessment and Plan: * Blood sugars ranging from 86-420 liable diabetic * Continue home medication * A1c 10.9 <DOLORES Henriquez - Last Filed: 05/27/21 10:56> (4) Abdominal pain: Code(s): R10.9 - Unspecified abdominal pain <DOLORES Henriquez - Last Filed: 05/27/21 10:56> Status: Acute <DOLORES Henriquez - Last Filed: 05/27/21 10:56> Assessment and Plan: * Right upper quadrant pain with nausea vomiting and diarrhea * Secondary to pancreatitis * Elevated lipase * Referred to pancreatitis <DOLORES Henriquez - Last Filed: 05/27/21 10:56> (5) Elevated lactic acid level: Code(s): R79.89 - Other specified abnormal findings of blood chemistry <DOLORES Henriquez - Last Filed: 05/27/21 10:56> Status: Acute <DOLORES Henriquez - Last Filed: 05/27/21 10:56> Assessment and Plan: * Lactic acid 8.5>1.8>3.7 * Blood culture UA culture pending * Continue D5 LR <DOLORES Henriquez - Last Filed: 05/27/21 10:56> DS: Summary Hospital Course Reason for hospitalization: Abdominal pain ,pancreatitis <DOLORES Henriquez - Last Filed: 05/27/21 10:56> Hospital Course: this is a 36-year-old female who presented to our emergency department with abdominal pain nausea vomiting and diarrhea. Patient has a past medical history of pancreatitis and type 1 diabetes. Patient notes that within the last 6 months she has been admitted here for pancreatitis she does not have a history of alcohol abuse. She noted that for the last 2 days she has been having right upper quadrant pain with nausea vomiting and diarrhea. Currently she is not experiencing that she still continues to have right upper quadrant tenderness. WBC 6.5 hemoglobin 13.1 hematocrit 39.4, platele
--- NOTE | 2021-05-27 07:37 | PM.DS ---
DS: Admitting Diagnosis Admitting Diagnosis Admitting Diagnosis: Pancreatitis <DOLORES Henriquez - Last Filed: 05/27/21 10:56> DS: Discharge Diagnosis Discharge Diagnosis (1) Pancreatitis: Qualifiers: Acute pancreatitis complication: no infection or necrosis Chronicity: acute Pancreatitis type: idiopathic Qualified Code(s): K85.00 - Idiopathic acute pancreatitis without necrosis or infection <DOLORES Henriquez - Last Filed: 05/27/21 10:56> Code(s): K85.90 - Acute pancreatitis without necrosis or infection, unspecified <Staci DellaDOLORES Anaya - Last Filed: 05/27/21 10:56> Status: Acute <DOLORES Henriquez - Last Filed: 05/27/21 10:56> Assessment and Plan: Reoccurring, etiology unknown, no history of alcohol abuse or use Lipase 774>212 Patient will need to follow-up with the GI doctor Able to tolerate meals <DOLORES Henriquez - Last Filed: 05/27/21 10:56> (2) Hypertension: Qualifiers: Hypertension type: unspecified secondary hypertension Qualified Code(s): I15.9 - Secondary hypertension, unspecified <DOLORES Henriquez - Last Filed: 05/27/21 10:56> Code(s): I10 - Essential (primary) hypertension <DOLORES Henriquez - Last Filed: 05/27/21 10:56> Status: Acute <DOLORES Henriquez - Last Filed: 05/27/21 10:56> Assessment and Plan: On admission patient blood pressure 158/100 Continue home meds <DOLORES Henriquez - Last Filed: 05/27/21 10:56> (3) Type 1 diabetes: Code(s): E10.9 - Type 1 diabetes mellitus without complications <DOLORES Henriquez - Last Filed: 05/27/21 10:56> Status: Acute <DOLORES Henriquez - Last Filed: 05/27/21 10:56> Assessment and Plan: Blood sugars ranging from 86-420 liable diabetic Continue home medication A1c 10.9 <DOLORES Henriquez - Last Filed: 05/27/21 10:56> (4) Abdominal pain: Code(s): R10.9 - Unspecified abdominal pain <DOLORES Henriquez - Last Filed: 05/27/21 10:56> Status: Acute <DOLORES Henriquez - Last Filed: 05/27/21 10:56> Assessment and Plan: Right upper quadrant pain with nausea vomiting and diarrhea Secondary to pancreatitis Elevated lipase Referred to pancreatitis <DOLORES Henriquez - Last Filed: 05/27/21 10:56> (5) Elevated lactic acid level: Code(s): R79.89 - Other specified abnormal findings of blood chemistry <DOLORES Henriquez - Last Filed: 05/27/21 10:56> Status: Acute <DOLORES Henriquez - Last Filed: 05/27/21 10:56> Assessment and Plan: Lactic acid 8.5>1.8>3.7 Blood culture UA culture pending Continue D5 LR <DOLORES Henriquez - Last Filed: 05/27/21 10:56> DS: Summary Hospital Course Reason for hospitalization: Abdominal pain ,pancreatitis <DOLORES Henriquez Last Filed: 05/27/21 10:56> Hospital Course: this is a 36-year-old female who presented to our emergency department with abdominal pain nausea vomiting and diarrhea. Patient has a past medical history of pancreatitis and type 1 diabetes. Patient notes that within the last 6 months she has been admitted here for pancreatitis she does not have a history of alcohol abuse. She noted that for the last 2 days she has been having right upper quadrant pain with nausea vomiting and diarrhea. Currently she is not experiencing that she still continues to have right upper quadrant tenderness. WBC 6.5 hemoglobin 13.1 hematocrit 39.4, platelets 400, sodium 137, potassium 4.3, BUN 17, creatinine 1.17 lactic acid 8.5 AST 44, ALT 56, alkaline phosphatase 182, lipase 774, amylase 85 UA positive for protein glucose ketones blood trace of bacteria toxicology negative CT of the abdomen unchanged. Patient is being admitted for pancreatitis. The patient denies SOB, CP, palpitatio
[2021-05-27 07:40] LABS: Glucose Point of Care 92 mg/dl (65-105)
[2021-05-27 07:45] VITALS: BP 146/101; PULSE 86; RESP 16; TEMP 36.7; O2SAT 100
[2021-05-27 08:14] LABS: Lactic Acid Reflex 2.9 mmol/L (0.4-2.0)
[2021-05-27] MEDS: hydrALAZINE 10 MG TABLET PO (08:14)
[2021-05-27 10:18] VITALS: BP 157/110; PULSE 92; RESP 14; O2SAT 98
[2021-05-27] MEDS: ACETAMINOPHEN 325 MG TABLET 650 MG PO (10:35)
[2021-05-27 10:57] LABS: Reflex Lactic Acid Yes or No Add Lactic
--- NOTE | 2021-05-27 12:22 | PC.NURSE ---
Pt discharged to home via wheel chair by RN to personal car. All personal belongings with pt. Discharge instructions given. Pt verbalized understanding.
--- NOTE | 2021-05-28 11:14 | PC.NURSE ---
Pt states she received and understood her discharge instructions. Pt also states everybody was awesome .
== END 2021-05-27 11:35 | disposition home or self-care (01) | DRG 440 ==
LOC: CHSED 21:56 → CHS2ND 22:14
PROVIDERS: Nurse Practitioner; Admitting Provider Emergency Medicine; Emergency Provider Emergency Medicine; Visit Provider Emergency Medicine
DX: K85.00 Idiopathic acute pancreatitis without necrosis or infection (principal); I10 Essential (primary) hypertension; E10.9 Type 1 diabetes mellitus without complications; R79.89 Other specified abnormal findings of blood chemistry; Z79.4 Long term (current) use of insulin
CPT/HCPCS: 36415; 74176; 80053; 80307; 81001; 82150; 82948; 83036; 83605; 83690; 84703; 85025; 85027; 86140; 87040; 87077; 87086; 87088; 87186; 96361; 96374; 96375; 96376; 99285; A9270; G0378; J0360; J1650; J1815; J2270; J2405; J7120; J7121

== ENCOUNTER 2021-08-28 11:31 | Inpatient (IN) | payer MEDICARE, SELFPAY ==
[2021-08-28 11:47] LABS: Glucose Point of Care > 450 mg/dl (65-105)
[2021-08-28 11:48] VITALS: BP 162/108; PULSE 109; RESP 18; TEMP 36.3; O2SAT 98
--- NOTE | 2021-08-28 12:02 | ED.GENADULT ---
HPI - General Adult General Chief complaint: Recheck/Abnormal Lab/Rx Stated complaint: increased sugar Time Seen by Provider: 08/28/21 12:02 Source: patient Mode of arrival: ambulatory Limitations: no limitations History of Present Illness HPI narrative: 36-year-old woman comes in today complaining of several days of nausea, bilateral flank pain (right greater than left) and elevated blood sugar. She states that she is type 1 diabetic and has had episodes of ketoacidosis in the past. She states she feels mildly short of breath. She has had no vomiting, diarrhea, dysuria, hematuria, cough or cold symptoms, fever or chills. She states she has had kidney infections in the past. Onset (ago): day(s) Location: abdomen Radiation: flank Severity: moderate Quality: sharp Pain Consistency: constant Relieving factors: none Exacerbating factors: none Associated symptoms: shortness of breath Treatments prior to arrival: none Related Data Home Medications Medication Instructions Recorded Confirmed insulin regular human 1 - 20 unit SUBCUT TID 04/12/21 08/28/21 Allergies Allergy/AdvReac Type Severity Reaction Status Date / Time iodine Allergy Unknown Verified 04/12/21 18:22 latex Allergy Unknown Verified 04/12/21 18:22 Penicillins Allergy Unknown Verified 04/12/21 18:22 Review of Systems Review of Systems: All systems reviewed & are unremarkable except as noted in HPI and below Constitutional: Constitutional: Denies chills, Reports fatigue, Denies fever(s) and Denies weakness Eyes: Eyes: Denies change in vision and Denies photophobia ENT: Denies nasal congestion and Denies sore throat Cardiovascular: Cardiovascular: Denies chest pain and Denies radiating jaw, neck or arm pain Respiratory: Respiratory: Denies cough and Reports dyspnea Gastrointestinal: Gastrointestinal: Reports abdominal pain ( Flank pain), Denies diarrhea, Reports nausea and Denies vomiting Genitourinary: Genitourinary: Denies hematuria, Denies nocturia and Denies dysuria Musculoskeletal: Musculoskeletal: Denies back pain, Denies arthralgias and Denies joint swelling Integumentary/Breasts: Skin/Breast: Denies pruritus, Denies erythema and Denies rash Neurologic: Denies vertigo, Denies dizziness, Denies syncope, Denies numbness and Denies weakness Hematologic/Lymphatic: Hematologic/Lymphatic: Denies easy bleeding and Denies easy bruising Allergic/Immunologic: Allergic/Immunologic: Denies lip swelling and Denies throat swelling [facility] Past Medical History Medical History (Updated 08/28/21 @ 17:47 by Shay Bonilla MD) Hypertension Pancreatitis Type 1 diabetes Surgical History Surgical History (Updated 08/28/21 @ 12:49 by Shay Bonilla MD) History of cataract surgery Hx of cholecystectomy Family History Family History (Updated 05/26/21 @ 09:20 by DOLORES Henriquez) Other Family history non-contributory Social History Social History Smoking packs per day: 0 Smoking cigarettes per day: 0.0 Smoking status: Light tobacco smoker Tobacco type: cigarettes Second hand tobacco smoke exposure: Yes Smoking end date: 03/22/20 Additional smoking assessment comments: pt stated smoked maybe 1 ciggeratte this past month Alcohol intake: former Drinks per week: 0 Substance use: never Substance use type: does not use Gender identity (if verbalized by the patient): Female Sexual Orientation (if Verbalized by the Patient): Straight or Heterosexual Spiritual care concerns: No Exam Const: General: alert and ill appearing acutely ( Mildly) Orientation/consciousness: patient oriented x3 Limitations: no limitations Other: mild acute distress. HENMT: Head: normal to inspection Ears: external ears normal, TM's normal bilaterally and EAC's normal General nose exam: Normal nares present Face and sinus: normal facial exam Mouth: Yes moist mucous me
[2021-08-28 12:06] LABS: Add Urine Microscopic? YES; Appearance Urine Clear (Clear); Bilirubin Urine Negative (Negative); Blood Urine Negative (Negative); Color Urine Light Yellow (Yellow); Glucose Urine UA 3+ (Negative); Ketones Urine 1+ (Negative); Leukocyte Esterase Ur Negative (Negative); Nitrate Urine Negative (Negative); Protein Urine Negative (Negative); Specific Grav Ur <= 1.005 (1.010-1.020); Urobilinogen Urine 0.2 mg/dL (0.2-1.0); pH Urine 6.5 (5.0-8.0)
[2021-08-28 12:09] LABS: Bacteria Urine None seen /hpf; Pregnancy On Board Control Positive; RBC Urine None seen /hpf (0-2); Squamous Epithelial Cell Urine Rare /hpf (Few); Urine Pregnancy Test Negative; WBC Urine None seen /hpf (0-3)
[2021-08-28] MEDS: ONDANSETRON INJ 4 MG/2 ML VIAL IV PUSH ×2 (12:26→18:42)
[2021-08-28] MEDS: SODIUM CHLORIDE 0.9% IV 1,000 ML 999 ML IV CONT ×2 (12:27→13:09)
[2021-08-28 12:51] LABS: Base Excess ABG -3.3 mmol/L (0-2); HCO3 ABG 20.1 mmol/L (23-29); Oxygen Content ABG 18.6 %vol (16.0-22.0); Oxygen Saturation ABG 97.5 % (95-97); Oxyhemoglobin 96.7 % (94-100); PCO2 ABG 31.5 mmHg (35-45); PO2 ABG 96.4 mmHg (80-90); Total Hemoglobin 13.6 g/dL (12.0-18.0); pH ABG 7.42 (7.35-7.45)
[2021-08-28 12:52] LABS: Device ROOM AIR; Modified Allen's Test Pass; Site Drawn LEFT RADIAL
[2021-08-28 13:01] LABS: Basophils Absolute Auto 0.03 K/mm3 (0.00-0.10); Basophils Percent Auto 0.6 % (0.0-1.0); Eosinophils Absolute Auto 0.07 K/mm3 (0.02-0.50); Eosinophils Percent Auto 1.4 % (1.0-6.0); Hematocrit 40.7 % (35.0-49.0); Hemoglobin 12.8 g/dL (12.0-15.0); Immature Granulocyte Absolute 0.02 K/mm3 (0.00-0.00); Immature Granulocyte Percent A 0.4 % (0.0-0.0); Immature Platelet Fraction Pct 6.4 % (1.0-7.0); Lymphocytes Absolute Auto 0.76 K/mm3 (1.10-4.50); Lymphocytes Percent Auto 15.7 % (18.0-42.0); Mean Corpuscular HGB Conc 31.4 g/dL (32.0-36.0); Mean Corpuscular Volume 92.3 fL (78.0-102.0); Mean Platelet Volume 12.2 fl (9.2-11.8); Monocytes Absolute Auto 0.24 K/mm3 (0.10-0.90); Monocytes Percent Auto 4.9 % (2.0-11.0); Neutrophils Absolute Auto 3.7 K/mm3 (1.7-7.2); Platelet Count Result 98 K/mm3 (150-420); Red Blood Count 4.41 M/mm3 (4.20-5.40); Red Cell Distribution Width 12.9 % (11.6-14.4); White Blood Count 4.9 K/mm3 (4.8-10.8)
[2021-08-28 13:14] LABS: Lactic Acid Reflex 2.6 mmol/L (0.4-2.0)
[2021-08-28 13:17] LABS: Alanine Aminotransferase 61 U/L (14-59); Albumin Level 2.5 g/dL (3.4-5.0); Alkaline Phosphatase 154 U/L (46-116); Anion Gap 10 mmol/L (8-16); Aspartate Amino Transferase 56 U/L (15-37); Bilirubin,Total 0.4 mg/dL (0.00-1.00); Blood Urea Nitrogen 19 mg/dL (7-18); Calcium 7.8 mg/dL (8.5-10.1); Carbon Dioxide 22 mmol/L (21-32); Chloride 89 mmol/L (98-108); Estimated CRCL calculation 46 ml/min; Estimated Glomerular Filt Rate 43; Lipase 300 U/L (73-393); Phosphorus 3.2 mg/dL (2.6-4.7); Potassium 5.7 mmol/L (3.5-5.1); Sodium 121 mmol/L (136-145); Total Protein 5.5 g/dL (6.4-8.2)
[2021-08-28 13:23] LABS: Glucose > 800 mg/dL (70-99); Osmolality Calculated 293 mOsm/kg (285-295)
[2021-08-28] MEDS: INSULIN HUMAN REGULAR (*BKC) 100 UNITS/ML 20 UNITS SUB-Q (14:11)
[2021-08-28 14:47] VITALS: BP 142/99; PULSE 98; RESP 18; O2SAT 98
[2021-08-28 14:48] LABS: Glucose Point of Care > 450 mg/dl (65-105)
[2021-08-28 15:53] LABS: Reflex Lactic Acid Yes or No Add Lactic
[2021-08-28 16:35] LABS: Anion Gap 21 mmol/L (8-16); Blood Urea Nitrogen 19 mg/dL (7-18); Calcium 8.3 mg/dL (8.5-10.1); Carbon Dioxide 15 mmol/L (21-32); Chloride 95 mmol/L (98-108); Estimated CRCL calculation 39 ml/min; Estimated Glomerular Filt Rate 35; Osmolality Calculated 295 mOsm/kg (285-295); Potassium 3.7 mmol/L (3.5-5.1); Sodium 131 mmol/L (136-145)
[2021-08-28 16:37] LABS: Glucose 470 mg/dL (70-99)
[2021-08-28] MEDS: POTASSIUM CHLORIDE 20 MEQ TABLET PO (17:36)
[2021-08-28] MEDS: KCL 20 MEQ/SW 100 ML 100 ML 50 MEQ IVPB (17:39)
[2021-08-28 18:33] LABS: Glucose Point of Care 115 mg/dl (65-105)
[2021-08-28] MEDS: DEXTROSE 5%/0.45% SOD CHL 1,000 ML 200 ML IV CONT (18:41)
[2021-08-28 19:29] VITALS: BP 148/92; PULSE 76; RESP 18; O2SAT 98
[2021-08-28 20:10] LABS: Glucose Point of Care 136 mg/dl (65-105)
[2021-08-28 20:15] VITALS: BP 126/87; PULSE 98; RESP 20; TEMP 36.8; O2SAT 98; BMI 23.8
[2021-08-28 20:15] LABS: Anion Gap 13 mmol/L (8-16); Blood Urea Nitrogen 15 mg/dL (7-18); Calcium 8.3 mg/dL (8.5-10.1); Carbon Dioxide 22 mmol/L (21-32); Chloride 99 mmol/L (98-108); Estimated CRCL calculation 58 ml/min; Estimated Glomerular Filt Rate 57; Glucose 148 mg/dL (70-99); Osmolality Calculated 281 mOsm/kg (285-295); Potassium 4.7 mmol/L (3.5-5.1); Sodium 134 mmol/L (136-145)
[2021-08-28 20:23] LABS: Lactic Acid Reflex 5.9 mmol/L (0.4-2.0)
[2021-08-28 21:03] LABS: Glucose Point of Care 259 mg/dl (65-105)
[2021-08-28] MEDS: INSULIN HUMAN REGULAR (*BKC) 100 UNITS in SODIUM CHLORIDE 0.9% IV 99 ML 8.2 UNITS IV CONT (21:17)
[2021-08-28 22:01] LABS: Glucose Point of Care 281 mg/dl (65-105)
--- NOTE | 2021-08-28 22:17 | PC.NURSE ---
2014 pt brought to floor via wheelchair with this RN. pt alert and oriented. instructions given to pt upon entering room regarding bed control, tv control, call light operation and phone operation. pt voiced understanding. discussed plan of care. pt voiced understanding.
--- NOTE | 2021-08-28 22:41 | PC.NURSE ---
report to aime contreras
--- NOTE | 2021-08-28 23:10 | PC.NURSE ---
Dr Bonilla notified of patient's blood sugar being 219 per accucheck. stated he will wait for BMP glucose.
[2021-08-28 23:11] LABS: Glucose Point of Care 219 mg/dl (65-105)
[2021-08-28 23:27] LABS: Anion Gap 17 mmol/L (8-16); Blood Urea Nitrogen 15 mg/dL (7-18); Calcium 8.2 mg/dL (8.5-10.1); Carbon Dioxide 19 mmol/L (21-32); Chloride 100 mmol/L (98-108); Estimated CRCL calculation 46 ml/min; Estimated Glomerular Filt Rate 44; Glucose 206 mg/dL (70-99); Osmolality Calculated 288 mOsm/kg (285-295); Potassium 3.3 mmol/L (3.5-5.1); Sodium 136 mmol/L (136-145)
[2021-08-28 23:43] VITALS: BP 131/95; PULSE 98; RESP 18; TEMP 36.7; O2SAT 99
--- NOTE | 2021-08-29 00:05 | PC.NURSE ---
Attempted to notify Dr Bonilla of blood sugar level. Dr in with patient in ED. Left message with [facility] [place] for Dr to return call.
[2021-08-29 00:06] LABS: Glucose Point of Care 111 mg/dl (65-105)
[2021-08-29] MEDS: DEXTROSE 5%/0.45% SOD CHL 1,000 ML 200 ML IV CONT (00:29)
--- NOTE | 2021-08-29 00:30 | PC.NURSE ---
Dr Bonilla notified of midnight blood sugar being 111. Per Dr Bonilla, nurses should now follow insulin protocol for needed changes. Insulin drip changed to 4.7/hr per protocol.
[2021-08-29] MEDS: KCL 20 MEQ/SW 100 ML 100 ML 50 MEQ IVPB ×2 (00:38→02:33)
[2021-08-29 01:03] LABS: Glucose Point of Care 64 mg/dl (65-105)
--- NOTE | 2021-08-29 01:05 | PC.NURSE ---
Blood sugar 64. Insulin drip paused per protocol. D5 1/2 continues @ 200ml/hr.
[2021-08-29 02:03] LABS: Glucose Point of Care 112 mg/dl (65-105)
[2021-08-29 03:02] LABS: Glucose Point of Care 286 mg/dl (65-105)
--- NOTE | 2021-08-29 03:20 | PC.NURSE ---
Dr Bonilla notified of patient's last several blood sugars with new orders received.
[2021-08-29] MEDS: DEXTROSE 5%/0.45% SOD CHL 1,000 ML 100 ML IV CONT (03:25)
[2021-08-29 05:15] LABS: Glucose Point of Care 187 mg/dl (65-105)
--- NOTE | 2021-08-29 05:15 | PC.NURSE ---
Dr Bonilla notified of patient's blood sugar per accucheck being 187 with no new orders received.
[2021-08-29 05:18] LABS: Basophils Absolute Auto 0.04 K/mm3 (0.00-0.10); Basophils Percent Auto 0.5 % (0.0-1.0); Eosinophils Absolute Auto 0.25 K/mm3 (0.02-0.50); Eosinophils Percent Auto 3.3 % (1.0-6.0); Hematocrit 37.7 % (35.0-49.0); Hemoglobin 12.2 g/dL (12.0-15.0); Immature Granulocyte Absolute 0.03 K/mm3 (0.00-0.00); Immature Granulocyte Percent A 0.4 % (0.0-0.0); Lymphocytes Absolute Auto 2.09 K/mm3 (1.10-4.50); Lymphocytes Percent Auto 27.5 % (18.0-42.0); Mean Corpuscular HGB Conc 32.4 g/dL (32.0-36.0); Mean Corpuscular Hemoglobin 28.9 pg (27.0-31.0); Mean Corpuscular Volume 89.3 fL (78.0-102.0); Mean Platelet Volume 9.9 fl (9.2-11.8); Monocytes Absolute Auto 0.27 K/mm3 (0.10-0.90); Monocytes Percent Auto 3.6 % (2.0-11.0); Neutrophils Absolute Auto 4.9 K/mm3 (1.7-7.2); Neutrophils Percent Auto 64.7 % (50.0-70.0); Platelet Count Result 243 K/mm3 (150-420); Red Blood Count 4.22 M/mm3 (4.20-5.40); Red Cell Distribution Width 12.9 % (11.6-14.4); White Blood Count 7.6 K/mm3 (4.8-10.8)
[2021-08-29 05:21] VITALS: BP 124/90; PULSE 92; PULSE 94; RESP 20; TEMP 36.4; O2SAT 98
[2021-08-29 05:33] LABS: Alanine Aminotransferase 53 U/L (14-59); Albumin Level 2.3 g/dL (3.4-5.0); Alkaline Phosphatase 111 U/L (46-116); Anion Gap 14 mmol/L (8-16); Aspartate Amino Transferase 42 U/L (15-37); Bilirubin,Total 0.2 mg/dL (0.00-1.00); Blood Urea Nitrogen 14 mg/dL (7-18); Calcium 7.5 mg/dL (8.5-10.1); Carbon Dioxide 18 mmol/L (21-32); Chloride 100 mmol/L (98-108); Estimated CRCL calculation 53 ml/min; Estimated Glomerular Filt Rate 52; Glucose 225 mg/dL (70-99); Lipase 213 U/L (73-393); Magnesium 1.7 mg/dL (1.8-2.4); Osmolality Calculated 281 mOsm/kg (285-295); Potassium 4.5 mmol/L (3.5-5.1); Sodium 132 mmol/L (136-145); Total Protein 5.3 g/dL (6.4-8.2)
[2021-08-29 05:35] LABS: Lactic Acid Reflex 8.2 mmol/L (0.4-2.0)
--- NOTE | 2021-08-29 06:26 | PC.NURSE ---
Patient sleeping. Ice water pitcher refilled. No apparent distress. Call light within reach.
[2021-08-29 07:33] LABS: Glucose Point of Care 289 mg/dl (65-105)
[2021-08-29 07:37] VITALS: BP 121/80; PULSE 98; RESP 16; TEMP 36.8; O2SAT 98
[2021-08-29 07:39] VITALS: PULSE 97
[2021-08-29 08:15] LABS: Reflex Lactic Acid Yes or No Add Lactic
[2021-08-29] MEDS: MAGNESIUM SULF 2 GM/WATER 50ML 2 GM/50 ML BAG IVPB (09:34)
[2021-08-29] MEDS: metFORMIN HCL XR 500 MG TAB.SR.24H PO (09:34)
[2021-08-29] MEDS: ONDANSETRON INJ 4 MG/2 ML VIAL IV PUSH ×2 (09:41→20:38)
--- NOTE | 2021-08-29 10:30 | PC.NURSE ---
Pt blood sugar 289 at 0730 with d51/2ns at 100. Sliding scale non administered due to late order and verification from pharmacy.
--- NOTE | 2021-08-29 11:30 | PM.IMHP ---
H&P: HPI History of Present Illness Date/Time: 08/29/21 11:30 Khloe Crump is a 36 year old female who comes to the hospital for elevated glucose. Pt states she does not check her glucose level because she does not like to stick her finger. Pt states that she gives herself 20 units of NovoLog before meals however she also stated that she bases her insulin dose on her carb count. She states she has been put on a long acting insulin in the past but her Medicare will not pay for this. Pt states she was having flank pain and she had elevated ketones according to her ketone test strips. This prompted her to come to the hospital. She denies CP, SOB, fever, chills, muscle and body aches this AM. She states she is nauseated but has not vomited. This AM she does feel better than when she initially came to the ER. She has a PMHx of DKA, HTN, Pancreatitis, T1DM. We discussed what happens over time when a diabetic does not keep control of their sugar. Pt laughed and stated her therapist and doctor have told her this in the past. I advised the Pt to talk to her volleyball player or PCP regarding an implantable device that allows her to check her glucose levels with her phone as an alternative to the redundancy of painful finger sticks. <ARMANDO Daniel - Last Filed: 08/29/21 15:42> Chief Complaint: increased sugar and elevated ketones (home test strips) <ARMANDO Daniel - Last Filed: 08/29/21 15:42> Review of Systems Constitutional: Constitutional: Reports as per HPI, Denies body ache(s), Denies chills, Denies fever(s) and Denies headache(s) <ARMANDO Daniel - Last Filed: 08/29/21 15:42> Cardiovascular: Cardiovascular: Reports as per HPI, Denies chest pain and Denies chest pain at rest <ARMANDO Daniel - Last Filed: 08/29/21 15:42> Respiratory: Respiratory: Reports as per HPI, Denies cough, Denies dyspnea and Denies dyspnea on exertion <ARMANDO Daniel - Last Filed: 08/29/21 15:42> Gastrointestinal: Gastrointestinal: Reports no additional gastrointestinal complaints, Denies abdominal pain and Reports other (flank pain) <ARMANDO Daniel - Last Filed: 08/29/21 15:42> Genitourinary: Genitourinary: Reports no additional female genitourinary complaints <ARMANDO Daniel - Last Filed: 08/29/21 15:42> Musculoskeletal: Musculoskeletal: Reports no additional musculoskeletal complaints <ARMANDO Daniel - Last Filed: 08/29/21 15:42> Neurologic: Reports system reviewed and no additional complaints, except as documented <ARMANDO Daniel - Last Filed: 08/29/21 15:42> Comments: denies neuropathy <ARMANDO Daniel - Last Filed: 08/29/21 15:42> Psychiatric: Psychiatric: Reports no additional psychiatric complaints <ARMANDO Daniel - Last Filed: 08/29/21 15:42> PMFSH Past Medical History Medical History: Medical History Hypertension Pancreatitis Type 1 diabetes <ARMANDO Daniel - Last Filed: 08/29/21 15:42> Surgical History Surgical History: Surgical History History of cataract surgery Hx of cholecystectomy <ARMANDO Daniel - Last Filed: 08/29/21 15:42> Family History Family History: Family History Other Family history non-contributory <ARMANDO Daniel - Last Filed: 08/29/21 15:42> Social History Social History: Social History Smoking packs per day: 1 Smoking cigarettes per day: 20.0 Smoking status: Current every day smoker Tobacco type: cigarettes Second hand tobacco smoke exposure: Yes Smoking end date: 03/22/20 Additional smoking assessment comments: pt stated smoked maybe 1 ciggeratte this past month Alcohol intake: former Drinks per week: 0 Substance use: never Substance use t
[2021-08-29 12:00] VITALS: BP 114/84; PULSE 102; PULSE 104; RESP 17; TEMP 36.6; O2SAT 99
--- NOTE | 2021-08-29 12:00 | PC.NURSE ---
Pt bedside glucose is >450. Lab check resulted 727. Reported to NAVIN Pierre. 14u humalog given per order.
[2021-08-29 12:16] LABS: Glucose Point of Care > 450 mg/dl (65-105)
[2021-08-29 12:29] LABS: Glucose 727 mg/dL (70-99)
[2021-08-29] MEDS: SODIUM CHLORIDE 0.9% IV 1,000 ML 100 ML IV CONT (12:49)
[2021-08-29] MEDS: PROCHLORPERAZINE EDISYLATE 10 MG/2 ML VIAL IV PUSH (13:10)
[2021-08-29 13:49] LABS: Glucose Point of Care > 450 mg/dl (65-105)
--- NOTE | 2021-08-29 13:50 | PC.NURSE ---
Pt bedside glucose >450. Repeat lab result 550. Reported to NAVIN Pierre.
[2021-08-29 14:21] LABS: Anion Gap 25 mmol/L (8-16); Blood Urea Nitrogen 21 mg/dL (7-18); Calcium 8.1 mg/dL (8.5-10.1); Carbon Dioxide 12 mmol/L (21-32); Chloride 94 mmol/L (98-108); Estimated CRCL calculation 46 ml/min; Estimated Glomerular Filt Rate 44; Sodium 131 mmol/L (136-145)
[2021-08-29 14:25] LABS: Acetone Small (Negative)
[2021-08-29 14:26] LABS: Glucose 550 mg/dL (70-99); Magnesium 2.5 mg/dL (1.8-2.4); Osmolality Calculated 300 mOsm/kg (285-295)
--- NOTE | 2021-08-29 15:55 | PC.NURSE ---
Bedside glucose 186, held insulin gtt per NAVIN Pierre.
[2021-08-29 15:58] LABS: Glucose Point of Care 186 mg/dl (65-105)
[2021-08-29 16:00] VITALS: BP 117/80; PULSE 104; RESP 20; TEMP 36.2; O2SAT 98
--- NOTE | 2021-08-29 17:00 | PC.NURSE ---
Bedside glucose 134, continued to hold insulin gtt.
[2021-08-29 17:01] LABS: Glucose Point of Care 134 mg/dl (65-105)
--- NOTE | 2021-08-29 18:00 | PC.NURSE ---
Bedside glucose 13, continued to hold insulin gtt.
[2021-08-29 18:03] LABS: Glucose Point of Care 139 mg/dl (65-105)
--- NOTE | 2021-08-29 19:00 | PC.NURSE ---
Completed change of shift report. Patient's blood sugar has been below 200 since 1555. Blood sugar is checked Q1. Patient has orders for insulin drip if blood sugar is above 250 mg/dL. Patient stated that she was not in any pain, and did not need anything at this time. Patient is independent and can use the toilet independently. She has a hat on the toilet for I & O.
[2021-08-29 19:18] LABS: Alanine Aminotransferase 49 U/L (14-59); Albumin Level 2.3 g/dL (3.4-5.0); Alkaline Phosphatase 119 U/L (46-116); Anion Gap 14 mmol/L (8-16); Aspartate Amino Transferase 28 U/L (15-37); Bilirubin,Total 0.4 mg/dL (0.00-1.00); Blood Urea Nitrogen 16 mg/dL (7-18); Calcium 8.3 mg/dL (8.5-10.1); Carbon Dioxide 22 mmol/L (21-32); Chloride 98 mmol/L (98-108); Estimated CRCL calculation 60 ml/min; Estimated Glomerular Filt Rate 60; Glucose 322 mg/dL (70-99); Osmolality Calculated 291 mOsm/kg (285-295); Potassium 4.3 mmol/L (3.5-5.1); Sodium 134 mmol/L (136-145); Total Protein 5.2 g/dL (6.4-8.2)
[2021-08-29 20:00] VITALS: BP 137/92; PULSE 101; PULSE 96; RESP 18; TEMP 36.9; O2SAT 98
[2021-08-29 20:14] LABS: Glucose Point of Care 303 mg/dl (65-105)
[2021-08-29] MEDS: INSULIN HUMAN REGULAR (*BKC) 100 UNITS in SODIUM CHLORIDE 0.9% IV 99 ML 6.5 UNITS IV CONT (20:26)
--- NOTE | 2021-08-29 20:40 | PC.NURSE ---
Patient's blood glucose taken from lab draw @ 1858 was 322. Her blood glucose from glucometer taken @ 1999 was 303. Therefore, her insulin drip was started, at the starting dose of 0.1 Units/kg/hour. As the patient weighs 64.8 kg, the correct starting dosage was 100 Units of regular insulin/100 mL of NaCl at 6.5 mL/hour. The insulin drip was started @2036, with Charge Nurse Radha Mendez as observer.
[2021-08-29 21:40] LABS: Glucose Point of Care 223 mg/dl (65-105)
--- NOTE | 2021-08-29 21:44 | PC.NURSE ---
Patient's blood glucose was 223 @ 2140. Her insulin dose was titrated to 4.5 mL/hr according to the titration protocol on the JAN. Radha Mendez, Charge Nurse, was the observer. Patient was no longer nauseous, and stated she did not have any pain, and did not need anything else at this time.
[2021-08-29] MEDS: SODIUM CHLORIDE 0.9% IV 1,000 ML 150 ML IV CONT (22:22)
[2021-08-29 22:43] LABS: Glucose Point of Care 88 mg/dl (65-105)
--- NOTE | 2021-08-29 22:50 | PC.NURSE ---
Patient's blood glucose was 88 @ 2240. As a result, her insulin drip was stopped. She was also given a carton of milk, 2 packages of saltines, and a container of Peanut butter to eat. Her blood glucose will be checked again in 1 hour.
[2021-08-29 23:41] LABS: Glucose Point of Care 116 mg/dl (65-105)
[2021-08-30] VITALS (7 sets, daily range): BP systolic 122–147; BP diastolic 82–98; PULSE 87–104; RESP 16–18; TEMP 36.6–37.1; O2SAT 97–99
[2021-08-30 00:35] LABS: Glucose Point of Care 248 mg/dl (65-105)
[2021-08-30 01:34] LABS: Glucose Point of Care 417 mg/dl (65-105)
--- NOTE | 2021-08-30 01:39 | PC.NURSE ---
Patient's blood glucose was 248 @ 0032. Since that was below the target goal of 250, the insulin drip remained off. Patient's blood glucose was 417 @ 0132, so the insulin drip was restarted, and the rate was increased by 2 units per hour, resulting in a rate of 6.5 mL/hr. Blood glucose will be rechecked in 1 hour.
--- NOTE | 2021-08-30 02:42 | PC.NURSE ---
Patient's blood glucose @0235 was 273, which represents a drop of 144. According to the titration schedule in effect, the insulin drip rate needs to be reduced by 3. Therefore, the insulin drip rate is now 3.5 mL/hr. This has been charted on the JAN.
[2021-08-30 02:46] LABS: Glucose Point of Care 273 mg/dl (65-105)
[2021-08-30 03:40] LABS: Glucose Point of Care 140 mg/dl (65-105)
[2021-08-30] MEDS: SODIUM CHLORIDE 0.9% IV 1,000 ML 150 ML IV CONT (04:22)
[2021-08-30 04:32] LABS: Glucose Point of Care 104 mg/dl (65-105)
--- NOTE | 2021-08-30 04:40 | PC.NURSE ---
Patient's blood glucose was 104 @ 0430. Since the blood glucose was below 125, the drip was stopped. Blood glucose will be monitored again in 1 hour.
[2021-08-30 05:51] LABS: Basophils Absolute Auto 0.04 K/mm3 (0.00-0.10); Basophils Percent Auto 0.4 % (0.0-1.0); Eosinophils Absolute Auto 0.24 K/mm3 (0.02-0.50); Eosinophils Percent Auto 2.4 % (1.0-6.0); Hematocrit 37.2 % (35.0-49.0); Hemoglobin 12.5 g/dL (12.0-15.0); Immature Granulocyte Absolute 0.04 K/mm3 (0.00-0.00); Immature Granulocyte Percent A 0.4 % (0.0-0.0); Lymphocytes Absolute Auto 2.03 K/mm3 (1.10-4.50); Lymphocytes Percent Auto 20.6 % (18.0-42.0); Mean Corpuscular HGB Conc 33.6 g/dL (32.0-36.0); Mean Corpuscular Volume 89.2 fL (78.0-102.0); Mean Platelet Volume 9.8 fl (9.2-11.8); Monocytes Absolute Auto 0.47 K/mm3 (0.10-0.90); Monocytes Percent Auto 4.8 % (2.0-11.0); Neutrophils Absolute Auto 7.1 K/mm3 (1.7-7.2); Neutrophils Percent Auto 71.4 % (50.0-70.0); Platelet Count Result 249 K/mm3 (150-420); Red Blood Count 4.17 M/mm3 (4.20-5.40); Red Cell Distribution Width 13.3 % (11.6-14.4); White Blood Count 9.9 K/mm3 (4.8-10.8)
[2021-08-30 06:07] LABS: Alanine Aminotransferase 45 U/L (14-59); Albumin Level 2.3 g/dL (3.4-5.0); Alkaline Phosphatase 130 U/L (46-116); Anion Gap 14 mmol/L (8-16); Aspartate Amino Transferase 39 U/L (15-37); Bilirubin,Total 0.3 mg/dL (0.00-1.00); Blood Urea Nitrogen 13 mg/dL (7-18); Calcium 7.7 mg/dL (8.5-10.1); Carbon Dioxide 19 mmol/L (21-32); Chloride 101 mmol/L (98-108); Estimated CRCL calculation 66 ml/min; Estimated Glomerular Filt Rate > 60; Glucose 270 mg/dL (70-99); Magnesium 1.8 mg/dL (1.8-2.4); Osmolality Calculated 288 mOsm/kg (285-295); Sodium 134 mmol/L (136-145); Total Protein 5.1 g/dL (6.4-8.2)
[2021-08-30 06:10] LABS: Acetone SMALL (Negative)
[2021-08-30 06:34] LABS: Glucose Point of Care 346 mg/dl (65-105)
--- NOTE | 2021-08-30 07:20 | PC.NURSE ---
Upon checking chart, insulin gtt showed that it had been paused. Per report from [facility] and verification of pump at bedside, drip had been resumed at 0630 at 2.5 u/hr. MAR corrected to reflect change.
[2021-08-30 07:46] LABS: Glucose Point of Care 342 mg/dl (65-105)
[2021-08-30] MEDS: INSULIN HUMAN NPH (*BKC) 100 UNITS/ML 10 UNITS SUB-Q ×2 (08:35→17:04)
--- NOTE | 2021-08-30 08:36 | PM.IMPN ---
Progress Note: A&P Assessment and Plan (1) Diabetic keto-acidosis: Qualifiers: Diabetes mellitus complication detail: without coma Diabetes mellitus type: type 1 Qualified Code(s): E10.10 - Type 1 diabetes mellitus with ketoacidosis without coma Code(s): E11.10 - Type 2 diabetes mellitus with ketoacidosis without coma Status: Acute Assessment and Plan: Glucose was > 800, Anion gap 21, 17, now 14, Ketones in urine, 3+ Glucose in urine, Cr 1.39 now 1.18, was on Insulin drip, now High Dose SSI though this may need to be adjusted, Pt unable to afford long acting insulin as her Medicare does not cover such. Zofran for nausea, Pt was given 2 Liters NS in the ER, now continue with NS 100/h 1536 hours: High Dose SSI was not high enough to keep Pt's glucose down and it elevated to 727 and on subsequent check came down to 550 mg/dL, Anion gap increased to 25 mEq/L and with corrected Albumin 29.3 mEq/L, Insulin drip started with hourly glucose checks. 08/30/2021 Insuline drip off, SSI with NPH 10 U BIDAC, ACHS glucose checks, diabetic diet, Cipro to complete 7 day course related to flank pain and possible cause of elevated glucose. (2) Type 1 diabetes: Qualifiers: Diabetes mellitus complication detail: with nephropathy Diabetes mellitus complication status: with kidney complications Qualified Code(s): E10.21 - Type 1 diabetes mellitus with diabetic nephropathy Code(s): E10.9 - Type 1 diabetes mellitus without complications Status: Acute Assessment and Plan: Currently High dose SSI, Diabetic Diet, Pt states she takes 20 Units prior to meals and then says she bases her dose on a carb count, will have to monitor how glucose trends, anticipate needing a different SSI regimen for this individual. 08/30/2021 See above (3) Acute renal injury: Code(s): N17.9 - Acute kidney failure, unspecified Status: Acute Assessment and Plan: Initially Pt's Cr was 1.39 -> 1.65 then slowly came down to now 1.18, will continue to monitor renal function 08/30/2021 Resolved, Pt taking PO fluids well, IVF stopped (4) Acute flank pain: Code(s): R10.9 - Unspecified abdominal pain Status: Acute Assessment and Plan: Pt dose not have complaints of flank pain at this time, pt is getting Rocephin for potential UTI or other infections. WBC WNL 7.6 08/30/2021 Resolved, will continue Cipro on DC to cover a total of 7 days (5) Nausea alone: Code(s): R11.0 - Nausea Status: Acute Assessment and Plan: Zofran for nausea, Pt states this works well. (6) Elevated lactic acid level: Code(s): R79.89 - Other specified abnormal findings of blood chemistry Status: Acute Assessment and Plan: initially 8.2 now 2 Subjective Date/time seen: 08/30/21 08:36 Pt is resting in bed. Glucose a bit better controlled this AM. Pt denies Nausea, Flank Pain, CP, Difficultly Breathing, no body aches, fever, chills. She states she was taking NPH insulin early in her DM diagnosis around the age of 8-12. Pt was able to eat this breakfast and lunch without nausea and without blood glucose elevating. Review of Systems Review of Systems: All systems reviewed & are unremarkable except as noted in HPI and below Exam Const: General: cooperative, comfortable, no acute distress, alert, awake and Physically active Nutritional Appearance: average body habitus Resp: Effort & Inspection: normal respiratory effort Auscultation: clear to auscultation bilaterally Cardio: Jugular venous distension: no JVD Rate: regular rate Heart sounds: S1 normal heart sound present and S2 normal heart sound present GI: GI Palp: Yes Soft to palpation and No Tenderness to palpation present (GI) Auscultation: normal bowel sounds Skin: General skin exam: normal color and dry skin Neuro: General: oriented to person, oriented to place and oriented to time Cranial nerves: Yes CN's II-XII intact bilate
[2021-08-30 09:27] LABS: Glucose Point of Care 183 mg/dl (65-105)
[2021-08-30 11:41] LABS: Glucose Point of Care 94 mg/dl (65-105)
[2021-08-30 17:03] LABS: Glucose Point of Care 282 mg/dl (65-105)
--- NOTE | 2021-08-30 19:00 | PC.NURSE ---
Completed change of shift report. Patient was in the bathroom. Updated board, and talked with patient when she came out. Patient stated that she was feeling better. She reported that she was not in any pain, and could not think of anything that she wanted.
[2021-08-30 21:12] LABS: Glucose Point of Care 146 mg/dl (65-105)
--- NOTE | 2021-08-30 21:15 | PC.NURSE ---
Completed patient rounding, and collecting blood glucose. Patient is resting comfortably in bed, with no signs of pain or discomfort. Blood glucose was 141 @ 2110. Patient asked for a snack, and was given crackers, peanut butter, and milk.
--- NOTE | 2021-08-30 22:27 | PC.NURSE ---
Completed patient rounding. Patient is resting comfortably in bed, with no signs of pain or discomfort. Patient stated that she did not need anything at this time.
[2021-08-31] VITALS: BP 130/90; PULSE 86; PULSE 91; RESP 18; TEMP 36.3; O2SAT 99
--- NOTE | 2021-08-31 | PC.NURSE ---
Patient rounding completed. Patient is sleeping comfortably in bed, with no signs of pain or discomfort.
--- NOTE | 2021-08-31 01:00 | PC.NURSE ---
Patient rounding completed. Patient is sleeping comfortably in bed, with no signs of pain or discomfort.
--- NOTE | 2021-08-31 02:00 | PC.NURSE ---
Completed patient rounding. Patient is sleeping comfortably in bed, with no signs of pain or discomfort.
[2021-08-31 04:00] VITALS: BP 136/93; PULSE 85; PULSE 91; RESP 16; TEMP 37.1; O2SAT 99
[2021-08-31 05:15] LABS: Hematocrit 38.6 % (35.0-49.0); Hemoglobin 12.6 g/dL (12.0-15.0); Mean Corpuscular HGB Conc 32.6 g/dL (32.0-36.0); Mean Corpuscular Hemoglobin 29.1 pg (27.0-31.0); Mean Corpuscular Volume 89.1 fL (78.0-102.0); Mean Platelet Volume 9.9 fl (9.2-11.8); Platelet Count Result 258 K/mm3 (150-420); Red Blood Count 4.33 M/mm3 (4.20-5.40); Red Cell Distribution Width 13.3 % (11.6-14.4); White Blood Count 6.5 K/mm3 (4.8-10.8)
[2021-08-31 05:27] LABS: Anion Gap 11 mmol/L (8-16); Blood Urea Nitrogen 8 mg/dL (7-18); Calcium 8.2 mg/dL (8.5-10.1); Carbon Dioxide 26 mmol/L (21-32); Chloride 100 mmol/L (98-108); Estimated CRCL calculation 73 ml/min; Estimated Glomerular Filt Rate > 60; Glucose 255 mg/dL (70-99); Osmolality Calculated 291 mOsm/kg (285-295); Potassium 3.9 mmol/L (3.5-5.1); Sodium 137 mmol/L (136-145)
[2021-08-31] MEDS: INSULIN HUMAN NPH (*BKC) 100 UNITS/ML 10 UNITS SUB-Q (06:32)
[2021-08-31 07:40] VITALS: BP 140/100; PULSE 81; RESP 18; TEMP 36.3; O2SAT 98
--- NOTE | 2021-08-31 07:40 | PM.DS ---
DS: Admitting Diagnosis Discharge Date 08/31/2021 Admitting Diagnosis DKA, TAYLOR, Flank Pain DS: Discharge Diagnosis Discharge Diagnosis (1) Diabetic keto-acidosis: Qualifiers: Diabetes mellitus complication detail: without coma Diabetes mellitus type: type 1 Qualified Code(s): E10.10 - Type 1 diabetes mellitus with ketoacidosis without coma Code(s): E11.10 - Type 2 diabetes mellitus with ketoacidosis without coma Status: Acute Assessment and Plan: Glucose was > 800, Anion gap 21, 17, now 14, Ketones in urine, 3+ Glucose in urine, Cr 1.39 now 1.18, was on Insulin drip, now High Dose SSI though this may need to be adjusted, Pt unable to afford long acting insulin as her Medicare does not cover such. Zofran for nausea, Pt was given 2 Liters NS in the ER, now continue with NS 100/h 1536 hours: High Dose SSI was not high enough to keep Pt's glucose down and it elevated to 727 and on subsequent check came down to 550 mg/dL, Anion gap increased to 25 mEq/L and with corrected Albumin 29.3 mEq/L, Insulin drip started with hourly glucose checks. 08/30/2021 Insuline drip off, SSI with NPH 10 U BIDAC, ACHS glucose checks, diabetic diet, Cipro to complete 7 day course related to flank pain and possible cause of elevated glucose. 08/31/2021 Glucose have been controlled with NPH and SSI, will ask Case Management to look at Medicaid approved Long Acting Insulin and Medium Acting Insulin so that this Pt, who has been diagnosed since the age of 9 with diabetes, and is now on disability, can afford proper insulin to better control her glucose. (2) Type 1 diabetes: Qualifiers: Diabetes mellitus complication detail: with nephropathy Diabetes mellitus complication status: with kidney complications Qualified Code(s): E10.21 - Type 1 diabetes mellitus with diabetic nephropathy Code(s): E10.9 - Type 1 diabetes mellitus without complications Status: Acute Assessment and Plan: Currently High dose SSI, Diabetic Diet, Pt states she takes 20 Units prior to meals and then says she bases her dose on a carb count, will have to monitor how glucose trends, anticipate needing a different SSI regimen for this individual. 08/30/2021 See above (3) Acute renal injury: Code(s): N17.9 - Acute kidney failure, unspecified Status: Acute Assessment and Plan: Initially Pt's Cr was 1.39 -> 1.65 then slowly came down to now 1.18, will continue to monitor renal function 08/30/2021 Resolved, Pt taking PO fluids well, IVF stopped 08/31/2021 Stable, Resolved (4) Acute flank pain: Code(s): R10.9 - Unspecified abdominal pain Status: Acute Assessment and Plan: Pt dose not have complaints of flank pain at this time, pt is getting Rocephin for potential UTI or other infections. WBC WNL 7.6 08/30/2021 Resolved, will continue Cipro on DC to cover a total of 7 days 08/31/2021 Will treat on DC as though she had Pyelonephritis (5) Nausea alone: Code(s): R11.0 - Nausea Status: Acute Assessment and Plan: Zofran for nausea, Pt states this works well. 08/31/2021 No nausea reported last 24 hours (6) Elevated lactic acid level: Code(s): R79.89 - Other specified abnormal findings of blood chemistry Status: Acute Assessment and Plan: initially 8.2 now 2 DS: Summary Hospital Course Hospital Course: Glucose improved, able to see that Medicare is able to cover NPH for this Pt, Pt to follow up with PCP and/or endocrinologies. Time Spent with Patient Time attestation: Total time spent providing and/or coordinating discharge services: < 30 minutes Exam Const: General: cooperative, comfortable, no acute distress, alert, awake and Physically active Nutritional Appearance: average body habitus Resp: Effort & Inspection: normal respiratory effort and no cough Auscultation: clear to auscultation bilaterally Cardio: Jugular venous distension: no JVD Palpation: normal
[2021-08-31 08:00] VITALS: PULSE 95
[2021-08-31 12:00] VITALS: PULSE 95; RESP 18; O2SAT 97
[2021-08-31 12:05] LABS: Glucose Point of Care 142 mg/dl (65-105)
--- NOTE | 2021-08-31 13:00 | PC.NURSE ---
Patient discharging to home. All discharge instructions and education reviewed with patient. Patient states understanding. Denies any questions at this time. All belongings gathered together and sent home with patient. Patient accompanied to front door by this nurse, patient ambulated with no issues. Left via private vehicle with spouse.
--- NOTE | 2021-09-08 11:48 | PC.NURSE ---
Unable to contact for discharge call back.
== END 2021-08-31 13:00 | disposition home or self-care (01) | DRG 638 ==
LOC: CHSED 17:47 → CHS2ND 18:57
PROVIDERS: Emergency Medicine; Nurse Practitioner Family; Admitting Provider Emergency Medicine; Emergency Provider Emergency Medicine; Visit Provider Emergency Medicine
DX: E10.10 Type 1 diabetes mellitus with ketoacidosis without coma (principal); E10.21 Type 1 diabetes mellitus with diabetic nephropathy; I10 Essential (primary) hypertension; F17.210 Nicotine dependence, cigarettes, uncomplicated; Z90.49 Acquired absence of other specified parts of digestive tract; N17.9 Acute kidney failure, unspecified; R79.89 Other specified abnormal findings of blood chemistry
CPT/HCPCS: 36415; 36600; 80048; 80053; 81001; 81025; 82010; 82805; 82947; 82948; 83605; 83690; 83735; 84100; 85025; 85027; 85055; 87040; 87086; 87088; 96361; 96374; 99285; A9270; J0696; J0780; J1815; J2405; J3475; J3480; J7030

== ENCOUNTER 2021-12-25 15:15 | Inpatient (IN) | payer MEDICARE, SELFPAY ==
[2021-12-25] VITALS (10 sets, daily range): BP systolic 129–149; BP diastolic 78–109; PULSE 98–115; RESP 16–20; TEMP 36.1–36.8; O2SAT 100; BMI 21.2
--- NOTE | ~2021-12-25 | CT_ITS ---
EXAMINATION: CT chest abdomen pelvis wo con DATE: 12/26/2021 10:56 INDICATION: Leukocytosis and abdominal pain TECHNIQUE: Transaxial computed tomographic images of the chest, abdomen, and pelvis were obtained wit hout intravenous contrast. The dose-length product (DLP) was 497.13 mGy-cm. Automated exposure contro l and iterative reconstruction technique were employed. COMPARISON: 05/25/2021 FINDINGS: CHEST CT: Scattered small nodules of the lungs are likely infectious or inflammatory. There is no focal airspac e opacity. There is no pleural effusion or pneumothorax. No pathologically enlarged thoracic lymph no he are identified. The heart size is normal. ABDOMEN/PELVIS CT: The gallbladder is surgically absent. Within the limitations of noncontrast examination, the liver, s pleen, pancreas, and adrenal glands are normal. Nonobstructing stones of the right kidney measure up to 8 mm. Nonobstructing left kidney stones measure up to 4 mm. No definite stones are identified in t he ureters or bladder. No pathologically enlarged abdominal or pelvic lymph nodes are identified. The urinary bladder is mildly distended. IMPRESSION: 1. Scattered small pulmonary nodules, likely infectious or inflammatory. 2. No acute findings in the abdomen or pelvis, sensitivity limited by the absence of intravenous cont rast. 3. Bilateral nephrolithiasis. Reviewed, dictated and finalized at location A. [employer] [facility] IMPRESSION: 1. Scattered small pulmonary nodules, likely infectious or inflammatory. 2. No acute findings in the abdomen or pelvis, sensitivity limited by the absen ce of intravenous contrast. 3. Bilateral nephrolithiasis.
[2021-12-25 15:27] LABS: Glucose Point of Care 384 mg/dl (65-105)
--- NOTE | 2021-12-25 15:37 | ED.GENADULT ---
HPI - General Adult General Chief complaint: Unspecified Stated complaint: AMB Time Seen by Provider: 12/25/21 15:38 History of Present Illness HPI narrative: 36-year-old female patient arrives to ER by EMS with complaints of abdominal pain as well as nausea and vomiting. Patient states that she is type 1 diabetic and gets frequent pancreatitis attacks. She also has had DKA in the past and states that she feels that she might be in DKA again. The symptoms started within the last 24 hours. She has had 1 episode of vomiting this morning. She denies any diarrhea. Denies any fever or chills. States that she takes regular insulin as well as long-acting insulin. She has not seen her psychiatric arnp for over 1-2 years. She states that her last episode of pancreatitis was within last couple of weeks and was seen here. Denies any recent COVID exposure. Has not been vaccinated smokes a pack of cigarettes a day. Denies alcohol intake. Related Data Allergies Allergy/AdvReac Type Severity Reaction Status Date / Time iodine Allergy Unknown Verified 12/25/21 15:27 latex Allergy Unknown Verified 12/25/21 15:27 Penicillins Allergy Unknown Verified 12/25/21 15:27 Review of Systems Constitutional: Constitutional: Reports as per HPI and Reports no additional constitutional complaints Eyes: Eyes: Reports as per HPI and Reports no additional eye complaints ENT: Reports system reviewed and no additional complaints, except as documented Cardiovascular: Cardiovascular: Reports as per HPI and Reports no additional cardiovascular complaints Respiratory: Respiratory: Reports as per HPI and Reports no additional respiratory complaints Gastrointestinal: Gastrointestinal: Reports as per HPI, Reports abdominal pain, Denies bloating, Denies constipation, Denies heartburn, Denies diarrhea, Reports nausea and Reports vomiting Genitourinary: Genitourinary: Reports no additional female genitourinary complaints Musculoskeletal: Musculoskeletal: Reports no additional musculoskeletal complaints Integumentary/Breasts: Skin/Breast: Reports system reviewed and no additional complaints, except as docu Neurologic: Reports system reviewed and no additional complaints, except as documented Psychiatric: Psychiatric: Reports no additional psychiatric complaints Endocrine: Endocrine: Reports no additional endocrine complaints Hematologic/Lymphatic: Hematologic/Lymphatic: Reports no additional hematologic/lymphatic complaints Allergic/Immunologic: Allergic/Immunologic: Reports no additional allergic/immunologic complaints PMFSH Past Medical History Medical History Hypertension Pancreatitis Type 1 diabetes Surgical History Surgical History History of cataract surgery Hx of cholecystectomy Family History Family History Other Family history non-contributory Social History Social History Smoking packs per day: 1 Smoking cigarettes per day: 20.0 Smoking status: Current every day smoker Tobacco type: cigarettes Second hand tobacco smoke exposure: Yes Smoking end date: 03/22/20 Additional smoking assessment comments: pt stated smoked maybe 1 ciggeratte this past month Alcohol intake: former Drinks per week: 0 Substance use: never Substance use type: does not use Gender identity (if verbalized by the patient): Female Sexual Orientation (if Verbalized by the Patient): Straight or Heterosexual Spiritual care concerns: No Exam Const: General: alert and ill appearing; No diaphoretic Nutritional Appearance: well nourished Orientation/consciousness: patient oriented x3 HENMT: Head: normal to inspection Ears: external ears normal General nose exam: Normal external nose present and Normal nares present Face and sinus:
[2021-12-25] MEDS: MORPHINE SULFATE (*CRX) 2 MG/ML INJ IV PUSH (15:55)
[2021-12-25] MEDS: SODIUM CHLORIDE 0.9% IV 1,000 ML 999 ML IV CONT ×3 (15:57→19:13)
[2021-12-25 16:16] LABS: Basophils Absolute Auto 0.08 K/mm3 (0.00-0.10); Basophils Percent Auto 0.7 % (0.0-1.0); Eosinophils Absolute Auto 2.15 K/mm3 (0.02-0.50); Eosinophils Percent Auto 19.4 % (1.0-6.0); Hematocrit 43.6 % (35.0-49.0); Hemoglobin 14.4 g/dL (12.0-15.0); Immature Granulocyte Absolute 0.17 K/mm3 (0.00-0.00); Immature Granulocyte Percent A 1.5 % (0.0-0.0); Lymphocytes Absolute Auto 2.05 K/mm3 (1.10-4.50); Lymphocytes Percent Auto 18.5 % (18.0-42.0); Mean Corpuscular Hemoglobin 30.5 pg (27.0-31.0); Mean Corpuscular Volume 92.4 fL (78.0-102.0); Mean Platelet Volume 9.1 fl (9.2-11.8); Monocytes Percent Auto 6.3 % (2.0-11.0); Neutrophils Percent Auto 53.6 % (50.0-70.0); Platelet Count Result 348 K/mm3 (150-420); Red Blood Count 4.72 M/mm3 (4.20-5.40); Red Cell Distribution Width 13.3 % (11.6-14.4); White Blood Count 11.1 K/mm3 (4.8-10.8)
[2021-12-25 16:16] LABS: Base Excess ABG -11.8 mmol/L (0-2); HCO3 ABG 12.7 mmol/L (23-29); Oxygen Content ABG 18.4 %vol (16.0-22.0); Oxygen Saturation ABG 97.5 % (95-97); Oxyhemoglobin 96.7 % (94-100); PCO2 ABG 25.8 mmHg (35-45); PO2 ABG 108.8 mmHg (80-90); Total Hemoglobin 13.4 g/dL (12.0-18.0); pH ABG 7.31 (7.35-7.45)
[2021-12-25 16:17] LABS: Device ROOM AIR; Modified Allen's Test Pass; Site Drawn LEFT RADIAL
[2021-12-25 16:21] LABS: Add Urine Microscopic? YES; Appearance Urine Clear (Clear); Bilirubin Urine Negative (Negative); Blood Urine 1+ (Negative); Color Urine Light Yellow (Yellow); Glucose Urine UA 3+ (Negative); Ketones Urine 3+ (Negative); Leukocyte Esterase Ur Negative (Negative); Nitrate Urine Negative (Negative); Protein Urine Negative (Negative); Urobilinogen Urine 0.2 mg/dL (0.2-1.0)
--- NOTE | 2021-12-25 16:24 | PC.NURSE ---
PT IS RESTING ON STRETCHER, PT REPORTS PAIN IMPROVEMENT, SHE IS NO LONGER MOANING AND IS ABLE TO LIE STILL. PT VSS PER MONITOR. PT IS AWAITING LAB RESULTS. IVF INFUSING ORDERED WITHOUT DIFFICULTY. WILL CONTINUE TO MONITOR.
[2021-12-25 16:27] LABS: Bacteria Urine Trace /hpf; RBC Urine 0-2 /hpf (0-2); Squamous Epithelial Cell Urine Rare /hpf (Few)
[2021-12-25 16:32] LABS: Alanine Aminotransferase 54 U/L (14-59); Albumin Level 2.8 g/dL (3.4-5.0); Alkaline Phosphatase 196 U/L (46-116); Amylase 52 U/L (25-115); Anion Gap 26 mmol/L (8-16); Aspartate Amino Transferase 44 U/L (15-37); Bilirubin,Total 0.4 mg/dL (0.00-1.00); Blood Urea Nitrogen 21 mg/dL (7-18); Calcium 8.5 mg/dL (8.5-10.1); Carbon Dioxide 16 mmol/L (21-32); Chloride 90 mmol/L (98-108); Estimated CRCL calculation 36 ml/min; Estimated Glomerular Filt Rate 33; Glucose 387 mg/dL (70-99); Lipase 228 U/L (73-393); Osmolality Calculated 293 mOsm/kg (285-295); Potassium 3.6 mmol/L (3.5-5.1); Sodium 132 mmol/L (136-145); Total Protein 6.9 g/dL (6.4-8.2)
[2021-12-25 16:40] LABS: Acetone Small (Negative)
[2021-12-25] MEDS: INSULIN HUMAN REGULAR (*BKC) 100 UNITS/ML IV PUSH (16:57)
[2021-12-25 17:38] LABS: Glucose Point of Care 237 mg/dl (65-105)
[2021-12-25] MEDS: PROMETHAZINE HCL 25 MG/ML AMPUL 12.5 MG IV PUSH (17:43)
[2021-12-25] MEDS: PANTOPRAZOLE SODIUM IV 40 MG VIAL IV PUSH (17:44)
[2021-12-25] MEDS: DEXTROSE 5% 1,000 ML 1,000 ML 100 ML IV CONT (17:55)
--- NOTE | 2021-12-25 18:04 | PC.NURSE ---
1705- [facility] AUDIO NARRATOR HEATHER NOTIFIED FOR POSSIBLE TRANSFER. 1725- HOSPITALIST RETURNS CALL REQUESTING ADDITIONAL FLUIDS PRIOR TO ACCEPTING PT . 1730- INSULIN DRIP HELD PER ERP DUE TO FSBS 238 AT THIS TIME. DEXTROSE AND NS DRIPS ARE ORDERED. PT AWAKES AND BEGINS TO MOAN WHEN ERP AT BEDSIDE. MEDICATION ORDERED. VSS PER MONITOR. WILL CONTINUE TO MONTIOR. 1750- PT IS RESTING WITHOUT DISTRESS ON COT IN EXAM ROOM. VSS PER MONITOR. IVF INFUSING ORDERED WITHOUT DIFFICULTY. WILL CONTINUE TO MONITOR.
[2021-12-25 18:31] LABS: Glucose Point of Care 227 mg/dl (65-105)
--- NOTE | 2021-12-25 18:36 | PC.NURSE ---
PT IS RESTING ON STRETCHER IN EXAM ROOM WITHOUT DISTRESS. PT NS BOLUS COMPLETED. PT FSBS 227 AT THIS TIME, PER ERP VO, INCREASED D5 TO 500ML BOLUS AT PRESENT. ORDER COMPLETED. VSS WILL CONTINUE TO MONITOR.
[2021-12-25 19:01] LABS: SARS-CoV-2 RNA PCR Negative (Negative)
[2021-12-25 19:08] LABS: Glucose Point of Care 405 mg/dl (65-105)
[2021-12-25 19:08] LABS: HCO3 VBG 19.1 mEq/l (24.0-30.0); PCO2 VBG 37.5 mmHg (42.0-48.0); PO2 VBG 44.6 mmHg (35.0-45.0); pH VBG 7.33 (7.33-7.43)
--- NOTE | 2021-12-25 19:08 | PC.NURSE ---
PT FSBS 405 AT THIS TIME. PER ERP TO STOP D5 AND ADMINISTER NS BOLUS. PT CONTINUES TO REST ON STRETCHER WITHOUT DISTRESS NOTED. VSS PER MONITOR. WILL CONTINUE TO MONITOR AND AWAIT FURTHER ORDERS.
[2021-12-25 19:09] LABS: Device ROOM AIR
[2021-12-25 19:18] LABS: Acetone Small (Negative)
[2021-12-25 19:25] LABS: Alanine Aminotransferase 43 U/L (14-59); Albumin Level 2.3 g/dL (3.4-5.0); Alkaline Phosphatase 152 U/L (46-116); Anion Gap 18 mmol/L (8-16); Aspartate Amino Transferase 34 U/L (15-37); Bilirubin,Total 0.3 mg/dL (0.00-1.00); Blood Urea Nitrogen 17 mg/dL (7-18); Calcium 7.5 mg/dL (8.5-10.1); Carbon Dioxide 18 mmol/L (21-32); Chloride 92 mmol/L (98-108); Estimated CRCL calculation 51 ml/min; Estimated Glomerular Filt Rate 50; Osmolality Calculated 284 mOsm/kg (285-295); Potassium 3.9 mmol/L (3.5-5.1); Sodium 128 mmol/L (136-145); Total Protein 5.5 g/dL (6.4-8.2)
[2021-12-25 19:26] LABS: Glucose 406 mg/dL (70-99)
--- NOTE | 2021-12-25 19:42 | PC.NURSE ---
SPOKE WITH AT THIS TIME. HE CALLED FOR INFORMATION. PT CONTINUES TO REST WITHOUT DISTRESS. WILL CONTINUE TO MONITOR.
[2021-12-25 20:11] LABS: Glucose Point of Care 388 mg/dl (65-105)
--- NOTE | 2021-12-25 20:25 | PC.NURSE ---
NO CHANGE IN PT STATUS, SHE CONTINUES TO REST ON STRETCHER WITHOUT DIFFICULTY, PT IS AWAITING ERP DECISION. WILL CONTINUE TO MONITOR.
[2021-12-25] MEDS: SODIUM CHLORIDE 0.9% IV 1,000 ML 250 ML IV CONT (20:45)
[2021-12-25 21:05] LABS: Glucose Point of Care 406 mg/dl (65-105)
[2021-12-25 22:03] LABS: Glucose Point of Care > 450 mg/dl (65-105)
[2021-12-25] MEDS: INSULIN HUMAN REGULAR (*BKC) 100 UNITS/ML 10 UNITS SUB-Q (22:06)
--- NOTE | 2021-12-25 22:18 | PC.NURSE ---
NO CHANGE IN PT STATUS, AWAITING RETURN CALL FROM [facility] FOR REPORT SO PT CAN GO UPSTAIRS FOR ADMISSION. WILL CONTINUE TO MONITOR.
--- NOTE | 2021-12-25 23:15 | ADMGEN ---
This patient, Khloe Crump, was admitted to 2nd Floor Room 202-2. Patient/family oriented to hospital policies and general routines including ID bracelet, bed and alarms, visiting hours, pain management, procedures, bathroom and other care routines, personal items, smoking policy, room service/diet, and visiting hours. Information on how to activate the Rapid Response Team has been discussed. Patient/Family are encouraged to report perceived risks to care and to ask questions if they do not understand what they are told or what they should do.
[2021-12-26 00:05] LABS: Glucose Point of Care 247 mg/dl (65-105)
[2021-12-26] MEDS: SODIUM CHLORIDE 0.9% IV 1,000 ML 150 ML IV CONT ×2 (02:31→11:16)
[2021-12-26 02:37] LABS: Glucose Point of Care 95 mg/dl (65-105)
[2021-12-26 04:00] VITALS: BP 132/96; PULSE 108; PULSE 110; RESP 20; TEMP 36.9; O2SAT 97
[2021-12-26 04:38] LABS: Glucose Point of Care 64 mg/dl (65-105)
[2021-12-26] MEDS: DEXTROSE 50% 25 GM/50 ML SYRINGE IV PUSH (04:56)
[2021-12-26 06:14] LABS: Glucose Point of Care 115 mg/dl (65-105)
[2021-12-26 06:39] LABS: Base Excess ABG -5.8 mmol/L (0-2); HCO3 ABG 18.8 mmol/L (23-29); Hematocrit 33.6 % (35.0-49.0); Hemoglobin 11.3 g/dL (12.0-15.0); Mean Corpuscular HGB Conc 33.6 g/dL (32.0-36.0); Mean Corpuscular Hemoglobin 30.8 pg (27.0-31.0); Mean Corpuscular Volume 91.6 fL (78.0-102.0); Mean Platelet Volume 8.9 fl (9.2-11.8); Oxygen Content ABG 15.9 %vol (16.0-22.0); Oxygen Saturation ABG 93.5 % (95-97); Oxyhemoglobin 92.7 % (94-100); PCO2 ABG 33.8 mmHg (35-45); PO2 ABG 70.7 mmHg (80-90); Platelet Count Result 290 K/mm3 (150-420); Red Blood Count 3.67 M/mm3 (4.20-5.40); Red Cell Distribution Width 13.7 % (11.6-14.4); Total Hemoglobin 12.2 g/dL (12.0-18.0); White Blood Count 16.6 K/mm3 (4.8-10.8); pH ABG 7.36 (7.35-7.45)
[2021-12-26 06:41] LABS: Device ROOM AIR; Modified Allen's Test Pass; Site Drawn RIGHT BRACHIAL
[2021-12-26 06:54] LABS: Acetone Moderate (Negative)
[2021-12-26 06:55] LABS: Alanine Aminotransferase 35 U/L (14-59); Alkaline Phosphatase 131 U/L (46-116); Anion Gap 15 mmol/L (8-16); Aspartate Amino Transferase 28 U/L (15-37); Bilirubin,Total 0.3 mg/dL (0.00-1.00); Blood Urea Nitrogen 10 mg/dL (7-18); Calcium 6.9 mg/dL (8.5-10.1); Carbon Dioxide 19 mmol/L (21-32); Chloride 104 mmol/L (98-108); Estimated CRCL calculation 64 ml/min; Estimated Glomerular Filt Rate > 60; Glucose 151 mg/dL (70-99); Magnesium 1.7 mg/dL (1.8-2.4); Osmolality Calculated 288 mOsm/kg (285-295); Potassium 3.7 mmol/L (3.5-5.1); Sodium 138 mmol/L (136-145)
[2021-12-26 07:02] LABS: Band Neutrophils Percent 0 % (0-6); Basophils Percent Manual 0 % (0-1); Eosinophils Percent Manual 44 % (1-6); Lymphocytes Absolute Manual 2.15 K/mm3 (1.1-4.5); Lymphocytes Percent Manual 13 % (18-44); Monocytes Absolute Manual 0.49 K/mm3 (0.1-0.90); Monocytes Percent Manual 3 % (3-9); Neutrophils Absolute Manual 6.64 K/mm3 (1.7-7.2); Neutrophils Percent Manual 40 % (46-73); Total Cells Counted 100
[2021-12-26 07:03] LABS: Platelet Estimate Adequate (Adequate)
[2021-12-26 07:48] LABS: Glucose Point of Care 199 mg/dl (65-105)
[2021-12-26 08:00] VITALS: BP 121/74; PULSE 104; RESP 17; TEMP 36.3; O2SAT 97
[2021-12-26 10:23] LABS: Glucose Point of Care 374 mg/dl (65-105)
[2021-12-26 10:34] LABS: Pregnancy On Board Control Positive; Urine Pregnancy Test Negative
[2021-12-26 12:00] VITALS: BP 130/78; PULSE 105; PULSE 99; RESP 19; TEMP 36.6; O2SAT 96
[2021-12-26] MEDS: ONDANSETRON INJ 4 MG/2 ML VIAL IV PUSH (12:05)
[2021-12-26 12:06] LABS: Glucose Point of Care 269 mg/dl (65-105)
[2021-12-26 12:36] LABS: Base Excess ABG -13.5 mmol/L (0-2); HCO3 ABG 10.5 mmol/L (23-29); Oxygen Saturation ABG 98.2 % (95-97); Oxyhemoglobin 97.5 % (94-100); PCO2 ABG 21.1 mmHg (35-45); PO2 ABG 133.1 mmHg (80-90); Total Hemoglobin 13.7 g/dL (12.0-18.0); pH ABG 7.31 (7.35-7.45)
[2021-12-26 12:37] LABS: Device ROOM AIR; Modified Allen's Test Pass; Site Drawn RIGHT BRACHIAL
[2021-12-26 12:53] LABS: Acetone Moderate (Negative)
[2021-12-26 12:54] LABS: Alanine Aminotransferase 41 U/L (14-59); Albumin Level 2.3 g/dL (3.4-5.0); Alkaline Phosphatase 164 U/L (46-116); Anion Gap 24 mmol/L (8-16); Aspartate Amino Transferase 33 U/L (15-37); Bilirubin,Total 0.3 mg/dL (0.00-1.00); Blood Urea Nitrogen 10 mg/dL (7-18); Calcium 7.7 mg/dL (8.5-10.1); Carbon Dioxide 12 mmol/L (21-32); Chloride 102 mmol/L (98-108); Estimated CRCL calculation 42 ml/min; Estimated Glomerular Filt Rate 40; Glucose 259 mg/dL (70-99); Osmolality Calculated 294 mOsm/kg (285-295); Potassium 3.5 mmol/L (3.5-5.1); Sodium 138 mmol/L (136-145); Total Protein 5.9 g/dL (6.4-8.2)
--- NOTE | 2021-12-26 12:59 | PM.IMHP ---
H&P: HPI History of Present Illness Date/Time: 12/26/21 12:59 this is a 36-year-old female who presented to urgent care with complaints of abdominal pain and vomiting. Patient has a past medical history of type 1 diabetes and pancreatitis. Patient notes that she has been having her symptoms for approximately 1 day. It was recommended that the patient be transferred to an outside hospital so that she can be placed on insulin drip. [facility] call suggest the patient is hydrated. According to ER doctor patient situation improved in the ED and she was admitted as an inpatient here. Patient nausea and vomiting and abdominal pain has resolved. Patient is on Accu-Cheks every 2 hours with sliding scale vital signs 121/74, 104, 17, 97.4, WBC 16.6, hemoglobin 11.3, hematocrit 33.6, platelets 290, pH 7.36, CO2 33.8, O2 7.7, bicarb 18.8, sodium 138, potassium 3.7, anion gap 15, glucose 151, calcium 6.9, magnesium 1.7 AST 8, ALT 35, acetone moderate, CT of the abdomen and pelvis indicate pulmonary nodules likely infectious, EKG indicates sinus rhythm with a heart rate of 96. If patient's situation worsen will attempt to transfer patient to a different hospital. Patient notes that her abdominal pain has resolved but she still continues to have some nausea. The patient denies SOB, CP, palpitation, extremity numbness, lightheadedness, dizziness, constipation, diarrhea, chills, or fever. Patient condition did not improve and she will transfer to [facility] now that bed are available. Chief Complaint: n/v abd pain Review of Systems Review of Systems: A 14 organ system Review of Systems was performed and pertinent positives included in the HPI, otherwise remaining ROS is negative. [facility] Past Medical History Medical History Hypertension Pancreatitis Type 1 diabetes Surgical History Surgical History History of cataract surgery Hx of cholecystectomy Family History Family History Other Family history non-contributory Social History Social History Smoking packs per day: 1 Smoking cigarettes per day: 20.0 Years smoked: 22 Smoking pack-years: 22.00 Smoking status: Current every day smoker Tobacco type: cigarettes Second hand tobacco smoke exposure: Yes Smoking end date: 03/22/20 Additional smoking assessment comments: pt stated smoked maybe 1 ciggeratte this past month Alcohol intake: former Drinks per week: 0 Substance use: current Substance use type: marijuana Last use: 11/24/2021 Gender identity (if verbalized by the patient): Female Sexual Orientation (if Verbalized by the Patient): Straight or Heterosexual Spiritual care concerns: No Meds Home Medications and Allergies Home Medications Medication Instructions Recorded Confirmed Type insulin NPH isoph U-100 human 10 units SUBCUT BIDAC #2 amp 08/31/21 12/25/21 Rx [Novolin N NPH U-100 Insulin] insulin lispro [Humalog U-100 0 sliding scale dose SUBCUT TIDWM 08/31/21 12/25/21 Rx Insulin] #2 amp syringe with needle [Syringe #100 ea 08/31/21 12/25/21 Rx 3cc/22Gx3/4 ] Allergies Allergy/AdvReac Type Severity Reaction Status Date / Time iodine Allergy Unknown Verified 12/25/21 15:27 latex Allergy Unknown Verified 12/25/21 15:27 Penicillins Allergy Unknown Verified 12/25/21 15:27 Vital Signs Vital Signs - 24 hr 12/25/21 15:20 12/25/21 15:58 12/25/21 16:15 Temperature 96.9 F L Pulse Rate 115 H 105 H 99 Respiratory Rate 20 16 Blood Pressure 149/109 H 134/98 H Pulse Oximetry 100 100 12/25/21 17:15 12/25/21 18:07 12/25/21 18:38 Temperature 98.0 F Pulse Rate 98 98 102 H Respiratory Rate 16 16 16 Blood Pressure 132/78 148/90 H 131/86 Pulse Oximetry 100 100 100 12/25/21 19:13 12/25/21 21:52 12/25/21
[2021-12-26 14:11] LABS: Glucose Point of Care 174 mg/dl (65-105)
[2021-12-26] MEDS: AZITHROMYCIN IV 500 MG in SODIUM CHLORIDE 0.9% IV 250 ML 250 MG IVPB (14:40)
[2021-12-26] MEDS: cefTRIAXone 2 GM in SODIUM CHLORIDE 0.9% IV 100 ML IVPB (14:41)
[2021-12-26] MEDS: MAGNESIUM OXIDE 400 MG TABLET PO (15:42)
[2021-12-26 15:45] VITALS: PULSE 69
[2021-12-26 15:57] LABS: Glucose Point of Care 161 mg/dl (65-105)
--- NOTE | 2021-12-26 16:07 | PC.NURSE ---
[facility] contacted for ALS transfer to [facility] with no ALS unit today
--- NOTE | 2021-12-26 16:10 | PC.NURSE ---
Report called to [facility] ICU, spoke with Carmen. Attempted to call pt's , Harjinder but both numbers provided were not in service at this time.
--- NOTE | 2021-12-26 17:38 | PC.NURSE ---
Gave report to [facility] EMS crew for transport to [facility] ICU.
--- NOTE | 2021-12-27 10:14 | TS_ITS ---
This report was moved to the correct visit, on 12/30/2021. Original report was signed by Staci Tirado APN on 12/27/2021 1014. Transfer Discharge Sum: Prov Provider Date of admission: 12/26/21 17:22 Primary care physician: PHYSICIAN NOT ON STAFF Admitting clinician: Ash Clarke MD Consults: 12/26/21 17:54 Consult to Dietitian Routine Reason for Consult:: DKA admission DS: Admitting Diagnosis Discharge Date 12/27/2021 Admitting Diagnosis dka DS: Discharge Diagnosis Discharge Diagnosis (1) Diabetic keto-acidosis: Code(s): E11.10 - Type 2 diabetes mellitus with ketoacidosis without coma Status: Acute Assessment and Plan: ABG 7.31>7.36 Mizrwb82.7>18.8 acetone small>small>mod BS 384>237>237>227>405>>450>247>95>64>115>199>374>269 Accu-Cheks every 2 hours will decrease sliding scale to moderate dose instead of high Will repeat ABGs along with acetone at 5:00 PM Order for nursing to call provider for blood sugar greater than 450 or less than 150 Anion gap 26>18>15 (2) Acute flank pain: Code(s): R10.9 - Unspecified abdominal pain Status: Acute Assessment and Plan: * Resolved Second to DKA (3) Elevated WBCs: Code(s): D72.829 - Elevated white blood cell count, unspecified Status: Acute Assessment and Plan: Elevated WBCs 16 Started Rocephin and azithromycin CT of the abdomen and chest indicates pulmonary nodule likely infectious Blood culture pending Lactic acid and crp pending (4) Type 1 diabetes: Qualifiers: Diabetes mellitus complication detail: with nephropathy Diabetes mellitus complication status: with kidney complications Qualified Code(s): E10.21 - Type 1 diabetes mellitus with diabetic nephropathy Code(s): E10.9 - Type 1 diabetes mellitus without complications Status: Acute Assessment and Plan: ABG 7.31>7.36 Eorqvh47.7>18.8 acetone small>small>mod BS 384>237>237>227>405>>450>247>95>64>115>199>374>269 Accu-Cheks every 2 hours will decrease sliding scale to moderate dose instead of high Will repeat ABGs along with acetone at 5:00 PM Order for nursing to call provider for blood sugar greater than 450 or less than 150 Anion gap 26>18>15 (5) Pancreatitis: Qualifiers: Acute pancreatitis complication: no infection or necrosis Chronicity: acute Pancreatitis type: idiopathic Qualified Code(s): K85.00 - Idiopathic acute pancreatitis without necrosis or infection Code(s): K85.90 - Acute pancreatitis without necrosis or infection, unspecified Status: Acute Assessment and Plan: Lipase within normal limits Transfer Discharge Sum: Med Medications Active and Home Medications: Home Medications Syringe 3cc/22Gx3/4 #100 ea 08/31/21 [Rx Confirmed 12/26/21] Novolin N NPH U-100 Insulin 10 units SUBCUT Q12H 12/26/21 [History Confirmed 12/26/21] insulin lispro [Humalog U-100 Insulin] See Rx Instructions .ROUTE .COMPLEX 12/26/21 [History Confirmed 12/26/21] Active Medications Acetaminophen (Acetaminophen 325 Mg Tablet) 650 mg PO Q6H PRN PRN Reason: Mild Pain (1-3) or Fever Last Admin: 12/27/21 09:30 Dose: 650 mg Documented by: Albuterol (Albuterol Sulfate (*Sp) Aerosol 1 Puff) 2 puff INHALATION Q6HRT PRN PRN Reason: Shortness Of Breath Amlodipine Besylate (Amlodipine Besylate 5 Mg Tablet) 5 mg PO QAM [facility] Last Admin: 12/27/21 09:49 Dose: 5 mg Documented by: Dextrose (Dextrose 50% 25 Gm/50 Ml Syringe) 12.5 gm IV PUSH PRN PRN; Protocol PRN Reason: Hypoglycemia Enoxaparin Sodium (Enoxaparin 40 Mg/0.4 Ml Syringe) 40 mg SUB-Q DAILY [facility] Last Admin: 12/27/21 09:49 Dose: 40 mg
== END 2021-12-26 16:35 | disposition short-term general hospital (02) | DRG 637 ==
LOC: CHSED 20:42 → CHS2ND 21:46
PROVIDERS: Nurse Practitioner; Admitting Provider Emergency Medicine; Emergency Provider Emergency Medicine; Visit Provider Emergency Medicine
DX: E10.10 Type 1 diabetes mellitus with ketoacidosis without coma (principal); K85.00 Idiopathic acute pancreatitis without necrosis or infection; E10.21 Type 1 diabetes mellitus with diabetic nephropathy; Z72.0 Tobacco use
CPT/HCPCS: 36415; 36600; 71250; 74176; 80053; 81001; 81025; 82010; 82150; 82803; 82805; 82948; 83690; 83735; 85025; 87040; 87077; 87086; 87088; 87186; 96361; 96365; 96375; 96376; 99285; A9270; C9113; C9803; G0378; J0456; J0696; J1815; J2270; J2405; J2550; J7030; J7050; J7070; U0003; U0005

== ENCOUNTER 2021-12-26 18:53 | Inpatient (IN) | payer MEDICARE, SELFPAY ==
[2021-12-26] VITALS (34 sets, daily range): BP systolic 125–142; BP diastolic 86–100; PULSE 99–119; RESP 6–34; O2SAT 92–100; BMI 20.5
--- NOTE | 2021-12-26 17:20 | ADMGEN ---
This patient, Khloe Crump, was admitted to ICU 4 at 1710. Patient/family oriented to hospital policies and general routines including ID bracelet, bed and alarms, visiting hours, pain management, procedures, bathroom and other care routines, personal items, smoking policy, room service/diet, and visiting hours. Information on how to activate the Rapid Response Team has been discussed. Patient/Family are encouraged to report perceived risks to care and to ask questions if they do not understand what they are told or what they should do.
[2021-12-26 17:38] LABS: Glucose Point of Care 199 mg/dl (65-105)
[2021-12-26 18:27] LABS: Hemoglobin A1C 10.9 % (<5.7)
[2021-12-26 18:40] LABS: Anion Gap 5 mmol/L (8-16); Blood Urea Nitrogen 7 mg/dL (7-17); Calcium 7.2 mg/dL (8.4-10.2); Carbon Dioxide 16 mmol/L (22-30); Chloride 109 mmol/L (98-107); Estimated CRCL calculation 85 ml/min; Estimated Glomerular Filt Rate > 60; Glucose 218 mg/dL (65-110); Magnesium 1.8 mg/dL (1.6-2.3); Phosphorus 2.4 mg/dL (2.5-4.5); Sodium 130 mmol/L (137-145)
--- NOTE | 2021-12-26 18:40 | PM.IMHP ---
H&P: HPI History of Present Illness Date/Time: 12/26/21 1800 this is at 36-year-old female patient who has a history of diabetes type 1 and is insulin dependent. The patient has also had a history of having pancreatitis in the past. The patient has been at [facility] since yesterday. The patient was found to be in DKA with an anion gap of 26. The patient was unable to be transferred to [facility] at that time. The provider was encouraged to give the patient at least 3 L of IV fluids to see if the anion gap closed. The anion gap was 15. However today patient's anion gap was 24. I recommended that the patient be transferred here to [facility]. Patient's anion gap is now 5. Her A1c is 10.9. Chest abdomen pelvis was read as scattered small pulmonary nodules likely infectious or inflammatory. No acute findings in the abdomen or pelvis sensitivity limited by the absence of intravenous contrast. Bilateral the for lysis. Patient was started on community-acquired pneumonia. The patient is being admitted to inpatient status in the ICU for DKA on the date of service of 12/26/2021. Chief Complaint: DKA Review of Systems Review of Systems: All systems reviewed & are unremarkable except as noted in HPI and below Constitutional: Constitutional: Reports as per HPI and Reports no additional constitutional complaints Eyes: Eyes: Reports as per HPI and Reports no additional eye complaints ENT: Reports system reviewed and no additional complaints, except as documented and Reports Normal hearing present Cardiovascular: Cardiovascular: Reports no additional cardiovascular complaints Respiratory: Respiratory: Reports no additional respiratory complaints and Reports no additional respiratory complaints Gastrointestinal: Gastrointestinal: Reports as per HPI and Reports no additional gastrointestinal complaints Musculoskeletal: Musculoskeletal: Reports no additional musculoskeletal complaints Integumentary/Breasts: Skin/Breast: Reports system reviewed and no additional complaints, except as docu and Reports as per HPI Neurologic: Reports system reviewed and no additional complaints, except as documented, Reports as per HPI and Reports Normal hearing present Psychiatric: Psychiatric: Reports no additional psychiatric complaints and Reports as per HPI Endocrine: Endocrine: Reports no additional endocrine complaints Hematologic/Lymphatic: Hematologic/Lymphatic: Reports no additional hematologic/lymphatic complaints Allergic/Immunologic: Allergic/Immunologic: Reports no additional allergic/immunologic complaints [facility] Past Medical History Medical History (Updated 12/26/21 @ 18:54 by Fauzia Haywood NP) Hypertension Pancreatitis Type 1 diabetes Surgical History Surgical History (Updated 12/26/21 @ 18:59 by Fauzia Haywood NP) History of cataract surgery History of tonsillectomy Hx of cholecystectomy Family History Family History (Updated 12/26/21 @ 18:55 by Fauzia Haywood NP) Unknown No family history of disorders Other Family history non-contributory Social History Social History (Updated 12/26/21 @ 18:57 by Fauzia Haywood NP) Social History: The patient is and she lives with her and his and their children. The patient has 3 children. She does occasionally use marijuana. No alcohol or illicit drugs. 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 The patient is disabled. The patient smokes about a pack a cigarettes a day. Code status full code Smoking packs per day: 1 Smoking cigarettes per day: 20.0 Years smoked: 22 Smoking pack-years: 22.00 Smoking status: Current every day smoker Second hand tobacco smoke exposure: Yes Alcohol intake: unknown Drinks per week: 0 Substance use: current Substance use type: marijuana Last use: 11/24/2021 Gender identity (if verbalized by the patient): Female Sexual Orientation (if Ve
[2021-12-26] MEDS: INSULIN HUMAN REGULAR (*BKC) 100 UNITS in SODIUM CHLORIDE 0.9% IV 99 ML IV CONT (18:44)
[2021-12-26] MEDS: KCL 20 MEQ/D5/0.45% SOD CHL 1,000 ML 150 ML IV CONT (18:56)
[2021-12-26 19:07] LABS: Glucose Point of Care 206 mg/dl (65-105)
[2021-12-26 20:38] LABS: Glucose Point of Care 145 mg/dl (65-105)
[2021-12-26] MEDS: NICOTINE (*PBKC) 21 MG PATCH 1 PATCH TRANSDERM (20:41)
[2021-12-26 21:10] LABS: Glucose Point of Care 126 mg/dl (65-105)
[2021-12-26 21:56] LABS: Anion Gap 5 mmol/L (8-16); Blood Urea Nitrogen 6 mg/dL (7-17); Calcium 7.5 mg/dL (8.4-10.2); Carbon Dioxide 17 mmol/L (22-30); Chloride 110 mmol/L (98-107); Estimated CRCL calculation 98 ml/min; Estimated Glomerular Filt Rate > 60; Glucose 132 mg/dL (65-110); Potassium 3.7 mmol/L (3.4-5.0); Sodium 132 mmol/L (137-145)
[2021-12-26 22:04] LABS: Add Urine Microscopic? YES; Appearance Urine Cloudy (Clear); Bacteria Urine Trace /hpf; Bilirubin Urine Negative (Negative); Blood Urine Negative (Negative); Color Urine Straw (Yellow); Glucose Urine UA 3+ mg/dL (Negative); Ketones Urine 1+ mg/dL (Negative); Leukocyte Esterase Ur 2+ LEU/UL (NEGATIVE); Mucus Urine Rare /lpf; Nitrate Urine Negative (Negative); Protein Urine Negative (Negative); Specific Grav Ur 1.012 (1.001-1.035); Squamous Epithelial Cell Urine Moderate /hpf (Few); Urobilinogen Urine Negative mg/dL (<2.0); WBC Urine >75 /hpf (0-3)
[2021-12-26] MEDS: INSULIN GLARGINE (*BKC) 100 UNITS/ML 20 UNITS SUB-Q (22:25)
[2021-12-26 22:31] LABS: Glucose Point of Care 133 mg/dl (65-105)
[2021-12-27] VITALS (32 sets, daily range): BP systolic 133–163; BP diastolic 95–109; PULSE 98–115; RESP 15–25; TEMP 36.7–37.2; O2SAT 96–100
[2021-12-27 03:25] LABS: Glucose Point of Care 188 mg/dl (65-105)
[2021-12-27 04:45] LABS: Basophils Absolute Auto 0.1 K/mm3 (0.0-0.1); Basophils Percent Auto 0.4 % (0.2-1.2); Eosinophils Absolute Auto 5.4 K/mm3 (0-0.3); Eosinophils Percent Auto 37.1 % (0-4.4); Hemoglobin 10.8 g/dL (12.0-15.0); Immature Granulocyte Absolute 0.07 K/mm3 (0.00-0.031); Immature Granulocyte Percent A 0.5 % (0-0.5); Mean Corpuscular HGB Conc 32.7 g/dl (32-36); Mean Corpuscular Hemoglobin 30.2 pg (26-34); Mean Corpuscular Volume 92.2 fl (80-100); Monocytes Absolute Auto 0.6 K/mm3 (0.1-0.6); Monocytes Percent Auto 4.4 % (2.6-8.5); Neutrophils Absolute Auto 6.5 K/mm3 (1.3-6.7); Neutrophils Percent Auto 44.6 % (45.5-73.1); Platelet Count Result 266 k/mm3 (150-375); Red Blood Count 3.58 M/mm3 (4.2-5.4); Red Cell Distribution Width 13.6 % (11.5-14.5); White Blood Count 14.6 K/mm3 (4.5-10.0)
[2021-12-27 05:02] LABS: Albumin Level 2.5 g/dL (3.5-5.1); Alkaline Phosphatase 149 U/L (38-126); Anion Gap 8 mmol/L (8-16); Aspartate Amino Transferase 39 U/L (14-36); Bilirubin,Total < 0.1 mg/dL (0.2-1.3); Blood Urea Nitrogen 3 mg/dL (7-17); Calcium 7.8 mg/dL (8.4-10.2); Carbon Dioxide 17 mmol/L (22-30); Chloride 109 mmol/L (98-107); Estimated CRCL calculation 85 ml/min; Estimated Glomerular Filt Rate > 60; Glucose 141 mg/dL (65-110); Lipase 80 U/L (23-300); Magnesium 1.9 mg/dL (1.6-2.3); Potassium 3.6 mmol/L (3.4-5.0); Sodium 134 mmol/L (137-145)
[2021-12-27 05:13] LABS: Alanine Aminotransferase 37 U/L (4-35)
[2021-12-27 05:35] LABS: Lactic Acid Reflex 6.6 mmol/L (0.7-2.1)
[2021-12-27 06:28] LABS: Thyroid Stimulating Hormone Reflex 0.674 uIU/mL (0.465-4.68)
[2021-12-27] MEDS: SODIUM CHLORIDE 0.9% IV 1,000 ML 999 ML IV CONT ×4 (06:32→23:29)
[2021-12-27 07:43] LABS: Reflex Lactic Acid Yes or No Add Lactic
[2021-12-27 08:11] LABS: Glucose Point of Care 82 mg/dl (65-105)
[2021-12-27 08:40] LABS: Lactic Acid 3.1 mmol/L (0.7-2.1)
--- NOTE | 2021-12-27 09:16 | WPDCNINT ---
Assessment and Plan Assessment and plan (1) Diabetic keto-acidosis: Code(s): E11.10 - Type 2 diabetes mellitus with ketoacidosis without coma Status: Acute Assessment and Plan: Patient presented with a nausea, vomiting, abdominal pain to the outside hospital in [facility], patient was found to be in DKA and was transferred to [facility] ICU for further management -patient has been transition to long-acting insulin and sliding scale insulin -will start patient on diabetic diet -hemoglobin A1c is 10.9 this admission (2) Nausea and vomiting: Code(s): R11.2 - Nausea with vomiting, unspecified Status: Acute Assessment and Plan: Resolved (3) Abdominal pain: Code(s): R10.9 - Unspecified abdominal pain Status: Acute Assessment and Plan: Lactic acid was 6.6, patient was given additional 2 L of IV fluid it is and her repeat lactic acid 3.3. -CT scan of the abdomen and pelvis was not remarkable for anything acute, bilateral nonobstructing renal stones -UA was positive, patient on azithromycin and ceftriaxone, -blood and urine cultures are pending (4) Hypertension: Qualifiers: Hypertension type: unspecified secondary hypertension Qualified Code(s): I15.9 - Secondary hypertension, unspecified Code(s): I10 - Essential (primary) hypertension Status: Acute Assessment and Plan: Will add amlodipine (5) DVT prophylaxis: Code(s): Z29.9 - Encounter for prophylactic measures, unspecified Status: Acute Assessment and Plan: Lovenox Additional Plan Discussed with patient updated with her condition and plan of care. Code status: Full code Critical care time spent: 42 minutes This dictation may have been done utilizing a voice recognition system. Attempts have been made to correct errors. However, there may be uncorrected grammatical, spelling, and recognition errors present. Due to a high probability of clinically significant, life threatening deterioration, the patient required my highest level of preparedness to intervene emergently and I personally spent this critical care time directly and personally managing the patient. This critical care time included obtaining a history; examining the patient; pulse oximetry; ordering and review of studies; arranging urgent treatment with development of a management plan; evaluation of patient's response to treatment; frequent reassessment; and discussions with other providers. It was exclusive of separately billable procedures and treating other patients and teaching time. Please see Assessment and Plan section and the rest of the note for further information on patient assessment and treatment Fleet [employer] Consult Note Consult date: 12/27/21 Time Seen: 06:57 Reason for consult: Diabetic ketoacidosis, nausea, vomiting, abdominal pain HPI: Khloe Crump is a 36 year old female past medical history of diabetes type 1, pancreatitis, essential hypertension, bipolar presented the [facility] in [place] on 12/25/2021 where she presented with complains of abdominal pain, nausea, vomiting. She has had DKA in the past. Patient was found to be in diabetic ketoacidosis and was transferred to the ICU here at [facility] for further management. Patient was on insulin infusion which has been transition to long-acting insulin Lantus and sliding scale insulin. Her latest hemoglobin A1c is 10.[address] scan of the chest abdomen and pelvis showed scattered small pulmonary nodules likely infectious or inflammatory, no acute findings in the abdomen to pelvis sensitivity limited by absence of intravenous contrast, bilateral nephrolithiasis, nonobstructing. Patient seen and examined this morning in the ICU, has been transition to Lantus and sliding scale insulin overnight. Patient feels much better, denies any nausea, vomiting. Complains of epigastric abdominal pain which has improved.
[2021-12-27] MEDS: NICOTINE (*PBKC) 21 MG PATCH 1 PATCH TRANSDERM (09:30)
[2021-12-27] MEDS: ACETAMINOPHEN 325 MG TABLET 650 MG PO (09:30)
[2021-12-27] MEDS: ENOXAPARIN 40 MG/0.4 ML SYRINGE SUB-Q (09:49)
[2021-12-27] MEDS: amLODIPine BESYLATE 5 MG TABLET PO (09:49)
--- NOTE | 2021-12-27 10:09 | PM.TDS ---
Transfer Discharge Sum: Prov Provider Date of admission: 12/26/21 17:22 Primary care physician: PHYSICIAN NOT ON STAFF Admitting clinician: Ash Clarke MD Consults: 12/26/21 17:54 Consult to Dietitian Routine Reason for Consult:: DKA admission DS: Admitting Diagnosis Discharge Date 12/27/2021 Admitting Diagnosis dka DS: Discharge Diagnosis Discharge Diagnosis (1) Diabetic keto-acidosis: Code(s): E11.10 - Type 2 diabetes mellitus with ketoacidosis without coma Status: Acute Assessment and Plan: ABG 7.31>7.36 Fmhnfj29.7>18.8 acetone small>small>mod BS 384>237>237>227>405>>450>247>95>64>115>199>374>269 Accu-Cheks every 2 hours will decrease sliding scale to moderate dose instead of high Will repeat ABGs along with acetone at 5:00 PM Order for nursing to call provider for blood sugar greater than 450 or less than 150 Anion gap 26>18>15 (2) Acute flank pain: Code(s): R10.9 - Unspecified abdominal pain Status: Acute Assessment and Plan: Resolved Second to DKA (3) Elevated WBCs: Code(s): D72.829 - Elevated white blood cell count, unspecified Status: Acute Assessment and Plan: Elevated WBCs 16 Started Rocephin and azithromycin CT of the abdomen and chest indicates pulmonary nodule likely infectious Blood culture pending Lactic acid and crp pending (4) Type 1 diabetes: Qualifiers: Diabetes mellitus complication detail: with nephropathy Diabetes mellitus complication status: with kidney complications Qualified Code(s): E10.21 - Type 1 diabetes mellitus with diabetic nephropathy Code(s): E10.9 - Type 1 diabetes mellitus without complications Status: Acute Assessment and Plan: ABG 7.31>7.36 Sfytys55.7>18.8 acetone small>small>mod BS 384>237>237>227>405>>450>247>95>64>115>199>374>269 Accu-Cheks every 2 hours will decrease sliding scale to moderate dose instead of high Will repeat ABGs along with acetone at 5:00 PM Order for nursing to call provider for blood sugar greater than 450 or less than 150 Anion gap 26>18>15 (5) Pancreatitis: Qualifiers: Acute pancreatitis complication: no infection or necrosis Chronicity: acute Pancreatitis type: idiopathic Qualified Code(s): K85.00 - Idiopathic acute pancreatitis without necrosis or infection Code(s): K85.90 - Acute pancreatitis without necrosis or infection, unspecified Status: Acute Assessment and Plan: Lipase within normal limits Transfer Discharge Sum: Med Medications Active and Home Medications: Home Medications Syringe 3cc/22Gx3/4 #100 ea 08/31/21 [Rx Confirmed 12/26/21] Novolin N NPH U-100 Insulin 10 units SUBCUT Q12H 12/26/21 [History Confirmed 12/26/21] insulin lispro [Humalog U-100 Insulin] See Rx Instructions .ROUTE .COMPLEX 12/26/21 [History Confirmed 12/26/21] Active Medications Acetaminophen (Acetaminophen 325 Mg Tablet) 650 mg PO Q6H PRN PRN Reason: Mild Pain (1-3) or Fever Last Admin: 12/27/21 09:30 Dose: 650 mg Documented by: Albuterol (Albuterol Sulfate (*Sp) Aerosol 1 Puff) 2 puff INHALATION Q6HRT PRN PRN Reason: Shortness Of Breath Amlodipine Besylate (Amlodipine Besylate 5 Mg Tablet) 5 mg PO QAM [facility] Last Admin: 12/27/21 09:49 Dose: 5 mg Documented by: Dextrose (Dextrose 50% 25 Gm/50 Ml Syringe) 12.5 gm IV PUSH PRN PRN; Protocol PRN Reason: Hypoglycemia Enoxaparin Sodium (Enoxaparin 40 Mg/0.4 Ml Syringe) 40 mg SUB-Q DAILY [facility] Last Admin: 12/27/21 09:49 Dose: 40 mg Documented by: Glucagon (Glucagon For Inj 1 Mg Vial) 1 mg IM PRN PRN; Protocol PRN Reason: Hypoglycemia Glucose (Glucose Oral Gel 15 Gm Of Glucse In 37.5 Gm Tube) 15 gm PO PRN PRN; Protocol PRN Reason: Hypoglycemia Dextrose (Dextrose 5% 1,000 Ml) 1,000 mls @ 100 mls/hr IVPB PRN PRN; Protocol PRN Reason: Hypoglycemia Azithromycin (Zithromax) 500 mg in 250 mls @ 250 mls/hr IVPB Q24H [facility] Ceftriaxone Sodium/Dextrose (Rocephin 1 Gm/
[2021-12-27 12:20] LABS: Glucose Point of Care 152 mg/dl (65-105)
--- NOTE | 2021-12-27 14:58 | PC.NURSE ---
Patient transfer received from ICU to room 241. 12/27/21 2280.
[2021-12-27 16:38] LABS: Glucose Point of Care 254 mg/dl (65-105)
[2021-12-27] MEDS: INSULIN ASPART (*BKC) 100 UNITS/ML SUB-Q (17:27)
--- NOTE | 2021-12-27 18:05 | PM.IMPN ---
Progress Note: A&P Assessment and Plan (1) Community acquired bacterial pneumonia: Code(s): J15.9 - Unspecified bacterial pneumonia Status: Acute (2) Elevated WBCs: Code(s): D72.829 - Elevated white blood cell count, unspecified Status: Acute (3) Acute renal injury: Code(s): N17.9 - Acute kidney failure, unspecified Status: Acute (4) Diabetic keto-acidosis: Code(s): E11.10 - Type 2 diabetes mellitus with ketoacidosis without coma Status: Acute (5) Hypertension: Qualifiers: Hypertension type: unspecified secondary hypertension Qualified Code(s): I15.9 - Secondary hypertension, unspecified Code(s): I10 - Essential (primary) hypertension Status: Acute (6) Elevated lactic acid level: Code(s): R79.89 - Other specified abnormal findings of blood chemistry Status: Acute (7) Type 1 diabetes: Qualifiers: Diabetes mellitus complication detail: with nephropathy Diabetes mellitus complication status: with kidney complications Qualified Code(s): E10.21 - Type 1 diabetes mellitus with diabetic nephropathy Code(s): E10.9 - Type 1 diabetes mellitus without complications Status: Acute (8) Poorly controlled type 1 diabetes mellitus: Code(s): E10.65 - Type 1 diabetes mellitus with hyperglycemia Status: Acute Assessment and Plan: 12/26/21 We are going to start the patient on the DKA protocol. The patient's anion gap looks like it is 5 not sure this is accurate but her glucose is 218 and her A1c is 10.9. The patient stated that she has been taking her insulin at home. The patient takes 70 30 as that is what she can afford. I explained that she may be able to go to the [employer] website and get a discounted rate or no pain. Her CT of the abdomen showed some nodules which could represent pneumonia. May consider is COVID swab. However the patient does not appear to have symptoms. She was started on a azithromycin Rocephin for possible pneumonia. 12/27/21 monitor overnight to ensure BG controlled cont abx x PNA bp remains elevated ACEi low dose ordered supportive care NS low dose restart home insulin pt will need close follow up w endocrinology HgA1c 10.9 anticipate dc home tomorrow Subjective Date/time seen: 12/27/21 18:05 BG improved with insulin gtt now off and transferred to med surg floor. pt reports that she is a known diabetic type 1 and that she takes her insulin as prescribed and does a good job keeping her insulin controlled but over the last week her sugars have been running higher than normal of note HgA1c is 10.9 Exam Narrative: GENERAL: chronically Ill appearing, poor hygiene in no apparent distress. HEENT: normocephalic, atraumatic.Sclera clear/white. Vision is grossly intact. Hearing grossly intact. Mucous membranes moist NECK: Neck supple, non-tender without lymphadenopathy, masses or thyromegaly. CARDIOVASCULAR: Regular rate and rhythm without murmurs, gallops, or rubs. RESPIRATORY: Clear to auscultation. Breath sounds equal bilaterally. No wheezes, rales, or rhonchi. GASTROINTESTINAL: Abdomen soft, non-tender, nondistended. . No guarding. SKIN: warm, intact with no suspicious lesions or rash NEURO: awake, alert, and oriented to person, place and time. There were no obvious focal neurologic abnormalities. EXTREMITIES: No edema. no cyanosis, no clubbing Objective Data Vital Signs Vital Signs: Vital Signs - 24 hr 12/26/21 18:15 12/26/21 18:30 12/26/21 18:45 Temperature Pulse Rate 104 H 107 H 105 H Respiratory Rate 18 34 H 6 L Blood Pressure Pulse Oximetry 100 100 100 12/26/21 19:00 12/26/21 19:15 12/26/21 19:30 Temperature Pulse Rate 112 H 103 H 103 H Respiratory Rate 22 H 18 19 Blood Pressure Pulse Oximetry 100 100 100 12/26/21 19:45 12/26/21 20:00 12/26/21 20:01 Temperature Pulse Rate 108 H 110 H 109 H Respiratory Rate 19 18 19 Blood Pressure 141
[2021-12-27] MEDS: SODIUM CHLORIDE 0.9% IV 1,000 ML 50 ML IV CONT (18:47)
[2021-12-27 19:25] LABS: Lactic Acid Reflex 6.3 mmol/L (0.7-2.1)
[2021-12-27] MEDS: INSULIN GLARGINE (*BKC) 100 UNITS/ML 20 UNITS SUB-Q (21:00)
[2021-12-27 21:42] LABS: Glucose Point of Care 180 mg/dl (65-105)
[2021-12-27 22:06] LABS: Reflex Lactic Acid Yes or No Add Lactic
[2021-12-27 22:52] LABS: Lactic Acid 4.1 mmol/L (0.7-2.1)
[2021-12-28] VITALS (7 sets, daily range): BP systolic 130–158; BP diastolic 90–102; PULSE 84–99; RESP 16–19; TEMP 36.2–36.6; O2SAT 10–100
[2021-12-28 06:14] LABS: Basophils Percent Auto 0.3 % (0.2-1.2); Eosinophils Absolute Auto 1.4 K/mm3 (0-0.3); Eosinophils Percent Auto 20.4 % (0-4.4); Hematocrit 33.8 % (37.0-47.0); Hemoglobin 11.4 g/dL (12.0-15.0); Immature Granulocyte Absolute 0.05 K/mm3 (0.00-0.031); Immature Granulocyte Percent A 0.7 % (0-0.5); Lymphocytes Absolute Auto 1.51 K/mm3 (0.9-3.2); Lymphocytes Percent Auto 21.4 % (18.3-44.2); Mean Corpuscular HGB Conc 33.7 g/dl (32-36); Mean Corpuscular Hemoglobin 30.1 pg (26-34); Mean Corpuscular Volume 89.2 fl (80-100); Monocytes Absolute Auto 0.5 K/mm3 (0.1-0.6); Monocytes Percent Auto 7.7 % (2.6-8.5); Neutrophils Absolute Auto 3.5 K/mm3 (1.3-6.7); Neutrophils Percent Auto 49.5 % (45.5-73.1); Platelet Count Result 242 k/mm3 (150-375); Red Blood Count 3.79 M/mm3 (4.2-5.4); Red Cell Distribution Width 13.5 % (11.5-14.5); White Blood Count 7.1 K/mm3 (4.5-10.0)
[2021-12-28 06:24] LABS: Lactic Acid Reflex 2.5 mmol/L (0.7-2.1)
[2021-12-28 06:27] LABS: Anion Gap 4 mmol/L (8-16); Calcium 7.2 mg/dL (8.4-10.2); Carbon Dioxide 25 mmol/L (22-30); Chloride 107 mmol/L (98-107); Estimated CRCL calculation 100 ml/min; Estimated Glomerular Filt Rate > 60; Glucose 81 mg/dL (65-110); Magnesium 1.8 mg/dL (1.6-2.3); Phosphorus 2.3 mg/dL (2.5-4.5); Potassium 3.2 mmol/L (3.4-5.0); Sodium 136 mmol/L (137-145)
[2021-12-28 07:14] LABS: Blood Urea Nitrogen < 2 mg/dL (7-17)
[2021-12-28 07:33] LABS: Glucose Point of Care 68 mg/dl (65-105)
[2021-12-28] MEDS: lisinopriL 10 MG TABLET PO (08:02)
[2021-12-28] MEDS: ENOXAPARIN 40 MG/0.4 ML SYRINGE SUB-Q (08:02)
[2021-12-28] MEDS: ACETAMINOPHEN 325 MG TABLET 650 MG PO (08:07)
[2021-12-28 08:19] LABS: Glucose Point of Care 116 mg/dl (65-105)
[2021-12-28] MEDS: POTASSIUM CHLORIDE 20 MEQ PACKET (FOR LIQUID) 40 MEQ PO (09:05)
[2021-12-28] MEDS: NICOTINE (*PBKC) 21 MG PATCH 1 PATCH TRANSDERM (09:05)
[2021-12-28 11:23] LABS: Glucose Point of Care 168 mg/dl (65-105)
--- NOTE | 2021-12-28 11:33 | PCDIET ---
Dietitian consult fo DKA. See Nutritional Teaching Interventions. Thank you for the consult.
[2021-12-28] MEDS: SODIUM CHLORIDE 0.9% IV 1,000 ML 50 ML IV CONT (12:06)
--- NOTE | 2021-12-28 12:47 | PC.NURSE ---
Outpatient referral fax[facility] and [facility]NT.
[2021-12-28 16:29] LABS: Glucose Point of Care 294 mg/dl (65-105)
--- NOTE | 2021-12-28 16:36 | PM.IMPN ---
Progress Note: A&P Assessment and Plan (1) Community acquired bacterial pneumonia: Code(s): J15.9 - Unspecified bacterial pneumonia Status: Acute (2) Elevated WBCs: Code(s): D72.829 - Elevated white blood cell count, unspecified Status: Acute (3) Acute renal injury: Code(s): N17.9 - Acute kidney failure, unspecified Status: Acute (4) Diabetic keto-acidosis: Code(s): E11.10 - Type 2 diabetes mellitus with ketoacidosis without coma Status: Acute (5) Hypertension: Qualifiers: Hypertension type: unspecified secondary hypertension Qualified Code(s): I15.9 - Secondary hypertension, unspecified Code(s): I10 - Essential (primary) hypertension Status: Acute (6) Elevated lactic acid level: Code(s): R79.89 - Other specified abnormal findings of blood chemistry Status: Acute (7) Type 1 diabetes: Qualifiers: Diabetes mellitus complication detail: with nephropathy Diabetes mellitus complication status: with kidney complications Qualified Code(s): E10.21 - Type 1 diabetes mellitus with diabetic nephropathy Code(s): E10.9 - Type 1 diabetes mellitus without complications Status: Acute (8) Poorly controlled type 1 diabetes mellitus: Code(s): E10.65 - Type 1 diabetes mellitus with hyperglycemia Status: Acute Additional Plan 12/26/21 We are going to start the patient on the DKA protocol. The patient's anion gap looks like it is 5 not sure this is accurate but her glucose is 218 and her A1c is 10.9. The patient stated that she has been taking her insulin at home. The patient takes 70 30 as that is what she can afford. I explained that she may be able to go to the [employer] website and get a discounted rate or no pain. Her CT of the abdomen showed some nodules which could represent pneumonia. May consider is COVID swab. However the patient does not appear to have symptoms. She was started on a azithromycin Rocephin for possible pneumonia. 12/27/21 monitor overnight to ensure BG controlled cont abx x PNA bp remains elevated ACEi low dose ordered supportive care NS low dose restart home insulin pt will need close follow up w endocrinology HgA1c 10.9 anticipate dc home tomorrow 12/28/2021 Patient doing okay continues to have elevated lactic acidosis blood sugars not at goal Adjusted insulin NS increased 100 cc per hour Continue antibiotic therapy Possible DC in the next 24-48 hours Subjective Date/time seen: 12/28/21 16:36 Patient reports that she is feeling better but noted to have lactic acidosis overnight IV fluids continued patient aware that she will need to be more compliant and that she is putting her life at risk if she fails to comply with insulin therapy Exam Narrative: GENERAL: chronically Ill appearing, poor hygiene in no apparent distress. HEENT: normocephalic, atraumatic.Sclera clear/white. Vision is grossly intact. Hearing grossly intact. Mucous membranes moist NECK: Neck supple, non-tender without lymphadenopathy, masses or thyromegaly. CARDIOVASCULAR: Regular rate and rhythm without murmurs, gallops, or rubs. RESPIRATORY: Clear to auscultation. Breath sounds equal bilaterally. No wheezes, rales, or rhonchi. GASTROINTESTINAL: Abdomen soft, non-tender, nondistended. . No guarding. SKIN: warm, intact with no suspicious lesions or rash NEURO: Cranial nerves intact There were no obvious focal neurologic abnormalities. EXTREMITIES: No edema. no cyanosis, no clubbing Objective Data Vital Signs Vital Signs: Vital Signs - 24 hr 12/27/21 18:00 12/27/21 19:53 12/27/21 22:00 Temperature 98.4 F 98.5 F Pulse Rate 105 H 105 H Respiratory Rate 18 18 Blood Pressure 151/98 H 159/97 H Pulse Oximetry 100 100 12/28/21 00:35 12/28/21 05:00 12/28/21 08:00 Temperature 97.6 F 97.6 F 97.3 F L Pulse Rate 99 94 95 Respiratory Rate 16 16 18 Blood Pressure 147/95 H 151/96 H 152/102 H Pulse Oximetry
[2021-12-28] MEDS: INSULIN ASPART (*BKC) 100 UNITS/ML SUB-Q (16:39)
[2021-12-28] MEDS: INSULIN GLARGINE (*BKC) 100 UNITS/ML 20 UNITS SUB-Q (20:17)
[2021-12-28 20:19] LABS: Glucose Point of Care 322 mg/dl (65-105)
[2021-12-28] MEDS: hydrALAZINE HCL 25 MG TABLET PO (21:45)
[2021-12-28 23:40] LABS: Lactic Acid Reflex 4.5 mmol/L (0.7-2.1)
[2021-12-28] MEDS: SODIUM CHLORIDE 0.9% IV 1,000 ML 100 ML IV CONT (23:54)
[2021-12-29] VITALS (10 sets, daily range): BP systolic 133–170; BP diastolic 89–110; PULSE 76–89; RESP 16–20; TEMP 36.2–37; O2SAT 99–100
[2021-12-29] MEDS: SODIUM CHLORIDE 0.9% IV 1,000 ML 500 ML IV CONT ×2 (00:15→02:31)
[2021-12-29 02:24] LABS: Reflex Lactic Acid Yes or No Add Lactic
[2021-12-29 03:06] LABS: Lactic Acid 2.7 mmol/L (0.7-2.1)
[2021-12-29] MEDS: SODIUM CHLORIDE 0.9% IV 1,000 ML 100 ML IV CONT ×2 (04:38→14:45)
[2021-12-29 05:38] LABS: Basophils Absolute Auto 0.1 K/mm3 (0.0-0.1); Basophils Percent Auto 0.9 % (0.2-1.2); Eosinophils Absolute Auto 1.6 K/mm3 (0-0.3); Eosinophils Percent Auto 29.5 % (0-4.4); Hematocrit 31.2 % (37.0-47.0); Hemoglobin 10.2 g/dL (12.0-15.0); Immature Granulocyte Absolute 0.02 K/mm3 (0.00-0.031); Immature Granulocyte Percent A 0.4 % (0-0.5); Lymphocytes Absolute Auto 1.83 K/mm3 (0.9-3.2); Mean Corpuscular HGB Conc 32.7 g/dl (32-36); Mean Corpuscular Hemoglobin 30.1 pg (26-34); Mean Platelet Volume 9.2 fl (7.4-10.4); Monocytes Absolute Auto 0.3 K/mm3 (0.1-0.6); Monocytes Percent Auto 6.1 % (2.6-8.5); Neutrophils Absolute Auto 1.7 K/mm3 (1.3-6.7); Neutrophils Percent Auto 30.1 % (45.5-73.1); Platelet Count Result 215 k/mm3 (150-375); Red Blood Count 3.39 M/mm3 (4.2-5.4); Red Cell Distribution Width 13.7 % (11.5-14.5); White Blood Count 5.6 K/mm3 (4.5-10.0)
[2021-12-29 05:50] LABS: Lactic Acid Reflex 2.3 mmol/L (0.7-2.1)
[2021-12-29 05:55] LABS: Anion Gap 4 mmol/L (8-16); Blood Urea Nitrogen 5 mg/dL (7-17); Calcium 7.3 mg/dL (8.4-10.2); Carbon Dioxide 23 mmol/L (22-30); Chloride 108 mmol/L (98-107); Estimated CRCL calculation 96 ml/min; Estimated Glomerular Filt Rate > 60; Glucose 140 mg/dL (65-110); Potassium 3.8 mmol/L (3.4-5.0); Sodium 135 mmol/L (137-145)
[2021-12-29 07:49] LABS: Glucose Point of Care 102 mg/dl (65-105)
[2021-12-29] MEDS: NICOTINE (*PBKC) 21 MG PATCH 1 PATCH TRANSDERM (08:07)
[2021-12-29] MEDS: lisinopriL 20 MG TABLET PO (08:07)
[2021-12-29] MEDS: ENOXAPARIN 40 MG/0.4 ML SYRINGE SUB-Q (08:08)
[2021-12-29] MEDS: INSULIN GLARGINE (*BKC) 100 UNITS/ML 12 UNITS SUB-Q ×2 (08:11→16:30)
--- NOTE | 2021-12-29 11:20 | PM.IMPN ---
Progress Note: A&P Assessment and Plan (1) Community acquired bacterial pneumonia: Code(s): J15.9 - Unspecified bacterial pneumonia Status: Acute (2) Elevated WBCs: Code(s): D72.829 - Elevated white blood cell count, unspecified Status: Acute (3) Acute renal injury: Code(s): N17.9 - Acute kidney failure, unspecified Status: Acute (4) Diabetic keto-acidosis: Code(s): E11.10 - Type 2 diabetes mellitus with ketoacidosis without coma Status: Acute (5) Hypertension: Qualifiers: Hypertension type: unspecified secondary hypertension Qualified Code(s): I15.9 - Secondary hypertension, unspecified Code(s): I10 - Essential (primary) hypertension Status: Acute (6) Elevated lactic acid level: Code(s): R79.89 - Other specified abnormal findings of blood chemistry Status: Acute (7) Type 1 diabetes: Qualifiers: Diabetes mellitus complication detail: with nephropathy Diabetes mellitus complication status: with kidney complications Qualified Code(s): E10.21 - Type 1 diabetes mellitus with diabetic nephropathy Code(s): E10.9 - Type 1 diabetes mellitus without complications Status: Acute (8) Poorly controlled type 1 diabetes mellitus: Code(s): E10.65 - Type 1 diabetes mellitus with hyperglycemia Status: Acute Assessment and Plan: 12/26/21 We are going to start the patient on the DKA protocol. The patient's anion gap looks like it is 5 not sure this is accurate but her glucose is 218 and her A1c is 10.9. The patient stated that she has been taking her insulin at home. The patient takes 70 30 as that is what she can afford. I explained that she may be able to go to the [employer] website and get a discounted rate or no pain. Her CT of the abdomen showed some nodules which could represent pneumonia. May consider is COVID swab. However the patient does not appear to have symptoms. She was started on a azithromycin Rocephin for possible pneumonia. 12/27/21 monitor overnight to ensure BG controlled cont abx x PNA bp remains elevated ACEi low dose ordered supportive care NS low dose restart home insulin pt will need close follow up w endocrinology HgA1c 10.9 anticipate dc home tomorrow Additional Plan 12/26/21 We are going to start the patient on the DKA protocol. The patient's anion gap looks like it is 5 not sure this is accurate but her glucose is 218 and her A1c is 10.9. The patient stated that she has been taking her insulin at home. The patient takes 70 30 as that is what she can afford. I explained that she may be able to go to the [employer] website and get a discounted rate or no pain. Her CT of the abdomen showed some nodules which could represent pneumonia. May consider is COVID swab. However the patient does not appear to have symptoms. She was started on a azithromycin Rocephin for possible pneumonia. 12/27/21 monitor overnight to ensure BG controlled cont abx x PNA bp remains elevated ACEi low dose ordered supportive care NS low dose restart home insulin pt will need close follow up w endocrinology HgA1c 10.9 anticipate dc home tomorrow 12/28/2021 Patient doing okay continues to have elevated lactic acidosis blood sugars not at goal Adjusted insulin NS increased 100 cc per hour Continue antibiotic therapy Possible DC in the next 24-48 hours 12/29/2021 Continue current regime and dc tomorrow Subjective Date/time seen: 12/29/21 11:20 Interval history: 36-year-old female patient who has a history of diabetes type 1 and is insulin dependent. The patient has also had a history of having pancreatitis in the past. The patient has been at [facility] since yesterday. The patient was found to be in DKA with an anion gap of 26. Pt admitted for CAP and DKA. Review of Systems Review of Systems: All systems reviewed & are unremarkable except as noted in HPI and below Exam Narrative:
[2021-12-29 11:42] LABS: Glucose Point of Care 154 mg/dl (65-105)
[2021-12-29 16:13] LABS: Glucose Point of Care 316 mg/dl (65-105)
[2021-12-29] MEDS: INSULIN ASPART (*BKC) 100 UNITS/ML SUB-Q (16:30)
[2021-12-29 20:45] LABS: Glucose Point of Care 220 mg/dl (65-105)
[2021-12-29] MEDS: hydrALAZINE HCL 25 MG TABLET PO (21:11)
[2021-12-30] MEDS: SODIUM CHLORIDE 0.9% IV 1,000 ML 100 ML IV CONT (03:29)
[2021-12-30 04:07] VITALS: BP 133/93; PULSE 78; RESP 16; TEMP 36.8; O2SAT 99
[2021-12-30 07:43] LABS: Glucose Point of Care 96 mg/dl (65-105)
[2021-12-30 08:00] VITALS: O2SAT 99
--- NOTE | 2021-12-30 08:23 | PM.DS ---
DS: Admitting Diagnosis Discharge Date 12/30/21 Admitting Diagnosis DKA DS: Discharge Diagnosis Discharge Diagnosis (1) Community acquired bacterial pneumonia: Code(s): J15.9 - Unspecified bacterial pneumonia Status: Acute Assessment and Plan: SEE BELOW (2) Elevated WBCs: Code(s): D72.829 - Elevated white blood cell count, unspecified Status: Acute (3) Acute renal injury: Code(s): N17.9 - Acute kidney failure, unspecified Status: Acute (4) Diabetic keto-acidosis: Code(s): E11.10 - Type 2 diabetes mellitus with ketoacidosis without coma Status: Acute (5) Hypertension: Qualifiers: Hypertension type: unspecified secondary hypertension Qualified Code(s): I15.9 - Secondary hypertension, unspecified Code(s): I10 - Essential (primary) hypertension Status: Acute (6) Elevated lactic acid level: Code(s): R79.89 - Other specified abnormal findings of blood chemistry Status: Acute (7) Type 1 diabetes: Qualifiers: Diabetes mellitus complication detail: with nephropathy Diabetes mellitus complication status: with kidney complications Qualified Code(s): E10.21 - Type 1 diabetes mellitus with diabetic nephropathy Code(s): E10.9 - Type 1 diabetes mellitus without complications Status: Acute (8) Poorly controlled type 1 diabetes mellitus: Code(s): E10.65 - Type 1 diabetes mellitus with hyperglycemia Status: Acute Assessment and Plan: 12/26/21 We are going to start the patient on the DKA protocol. The patient's anion gap looks like it is 5 not sure this is accurate but her glucose is 218 and her A1c is 10.9. The patient stated that she has been taking her insulin at home. The patient takes 70 30 as that is what she can afford. I explained that she may be able to go to the [employer] website and get a discounted rate or no pain. Her CT of the abdomen showed some nodules which could represent pneumonia. May consider is COVID swab. However the patient does not appear to have symptoms. She was started on a azithromycin Rocephin for possible pneumonia. 12/27/21 monitor overnight to ensure BG controlled cont abx x PNA bp remains elevated ACEi low dose ordered supportive care NS low dose restart home insulin pt will need close follow up w endocrinology HgA1c 10.9 anticipate dc home tomorrow 12/28/2021 Patient doing okay continues to have elevated lactic acidosis blood sugars not at goal Adjusted insulin NS increased 100 cc per hour Continue antibiotic therapy Possible DC in the next 24-48 hours 12/29/2021 Continue current regime and dc tomorrow 12/30/21 Pt stable for DC today DS: Summary Hospital Course Hospital Course: 36-year-old female patient who has a history of diabetes type 1 and is insulin dependent. The patient has also had a history of having pancreatitis in the past. The patient has been at [facility] since yesterday. The patient was found to be in DKA with an anion gap of 26. Pt admitted for CAP and DKA. Pt is much improved and stable for discharge today. Time Spent with Patient Time attestation: Total time spent providing and/or coordinating discharge services:45 minutes on day of discharge Exam Narrative: GENERAL: chronically Ill appearing NECK: Neck supple, non-tender without lymphadenopathy, masses or thyromegaly. CARDIOVASCULAR: Regular rate and rhythm without murmurs, gallops, or rubs. RESPIRATORY: Clear to auscultation. Breath sounds equal bilaterally. No wheezes, rales, or rhonchi. GASTROINTESTINAL: Abdomen soft, non-tender, nondistended. . No guarding. SKIN: warm, intact with no suspicious lesions or rash NEURO: Cranial nerves intact There were no obvious focal neurologic abnormalities. EXTREMITIES: No edema. no cyanosis, no clubbing DS: Data Data Completed and Pending Labs on day of discharge: Labs from last 24 hours 12/30/21 12/29/21 12/29/21
[2021-12-30 08:52] LABS: Hematocrit 33.7 % (37.0-47.0); Hemoglobin 10.7 g/dL (12.0-15.0); Mean Corpuscular HGB Conc 31.8 g/dl (32-36); Mean Corpuscular Hemoglobin 30.4 pg (26-34); Mean Corpuscular Volume 95.7 fl (80-100); Mean Platelet Volume 9.7 fl (7.4-10.4); Platelet Count Result 231 k/mm3 (150-375); Red Blood Count 3.52 M/mm3 (4.2-5.4); Red Cell Distribution Width 14.1 % (11.5-14.5); White Blood Count 5.6 K/mm3 (4.5-10.0)
[2021-12-30 09:04] LABS: Anion Gap 6 mmol/L (8-16); Blood Urea Nitrogen 8 mg/dL (7-17); Carbon Dioxide 24 mmol/L (22-30); Chloride 105 mmol/L (98-107); Estimated CRCL calculation 100 ml/min; Estimated Glomerular Filt Rate > 60; Glucose 199 mg/dL (65-110); Sodium 135 mmol/L (137-145)
[2021-12-30] MEDS: lisinopriL 20 MG TABLET PO (09:43)
[2021-12-30] MEDS: NICOTINE (*PBKC) 21 MG PATCH 1 PATCH TRANSDERM (09:43)
[2021-12-30] MEDS: ENOXAPARIN 40 MG/0.4 ML SYRINGE SUB-Q (09:43)
[2021-12-30] MEDS: INSULIN GLARGINE (*BKC) 100 UNITS/ML 12 UNITS SUB-Q (09:44)
[2021-12-30 10:00] VITALS: BP 159/101; PULSE 92; RESP 18; TEMP 36.1; O2SAT 100
[2021-12-30 11:24] VITALS: BP 149/105
[2021-12-30 11:42] LABS: Glucose Point of Care 272 mg/dl (65-105)
[2021-12-30] MEDS: INSULIN ASPART (*BKC) 100 UNITS/ML SUB-Q (11:56)
--- NOTE | 2021-12-30 14:45 | PCCDE ---
Consult received 12/26; pt admitted Tuesday 12/26 with DKA and hx of T1D. Pt was discharged today minutes before I arrived to the room. Just attempted to call the patient but the number listed in the chart is not a working number .
== END 2021-12-30 14:15 | disposition home or self-care (01) | DRG 637 ==
LOC: ANHICU 12-27 09:02 → ANH2MED 12-28 11:13 → ANHICU 12-31 11:46
PROVIDERS: Hospitalist; Internal Medicine; Nurse Practitioner; Admitting Provider Internal Medicine; Visit Provider Family Medicine
DX: E10.10 Type 1 diabetes mellitus with ketoacidosis without coma (principal); J15.9 Unspecified bacterial pneumonia; N17.9 Acute kidney failure, unspecified; E10.21 Type 1 diabetes mellitus with diabetic nephropathy; E10.65 Type 1 diabetes mellitus with hyperglycemia; D72.829 Elevated white blood cell count, unspecified; R10.9 Unspecified abdominal pain; F17.210 Nicotine dependence, cigarettes, uncomplicated; Z90.49 Acquired absence of other specified parts of digestive tract; F31.9 Bipolar disorder, unspecified
CPT/HCPCS: 36415; 80048; 80053; 81001; 82728; 82948; 83036; 83605; 83690; 83735; 84100; 84443; 85025; 85027; A9270; J0456; J0696; J1650; J1815; J3480; J7030